=== PATIENT | male | born 1930 | race Caucasian/White ===

== ENCOUNTER 2019-03-09 06:23 | Day surgery (SDC) | payer OTHER, MEDICARE ==
[~2019-03-09 06:23] MED LIST: Lactated Ringers 1,000 ML IV SCH; ceFAZolin 2 GM in Premix Bag 1 BAG IV ONE
--- NOTE | 2019-03-09 07:07 | PCM.PREANE ---
Preanesthetic Assessment - Anesthesia/Transfusion/Family Hx Anesthesia History: Prior Anesthesia Without Reaction Family History of Anesthesia Reaction: No Transfusion History: Prior Transfusion Without Reaction Intubation History: Unknown - Review of Systems General: No Symptoms Pulmonary: No Symptoms Cardiovascular: No Symptoms Gastrointestinal: No Symptoms Neurological: No Symptoms Other: Reports: None - Physical Assessment Vital Signs: Last Vital Signs Temp 36.5 C 03/09/19 06:45 Pulse 72 03/09/19 06:45 Resp 15 03/09/19 06:45 BP 152/89 H 03/09/19 06:45 Pulse Ox 96 03/09/19 06:45 Height: 6 ft 1 in Weight: 98.43 kg ASA Class: 2 Mental Status: Alert & Oriented x3 Airway Class: Mallampati = 2 Dentition: Reports: Normal Dentition Thyro-Mental Finger Breadths: 3 Mouth Opening Finger Breadths: 2 ROM/Head Extension: Limited/Partial Lungs: Clear to Auscultation, Normal Respiratory Effort Cardiovascular: Regular Rate, Regular Rhythm - Allergies Allergies/Adverse Reactions: Allergies Allergy/AdvReac Type Severity Reaction Status Date / Time No Known Allergies Allergy Verified 03/04/19 10:38 - Blood Blood Available: No - Anesthesia Plan Pre-Op Medication Ordered: None - Acknowledgements Anesthesia Type Planned: General Anesthesia Pt an Appropriate Candidate for the Planned Anesthesia: Yes Alternatives and Risks of Anesthesia Discussed w Pt/Guardian: Yes Pt/Guardian Understands and Agrees with Anesthesia Plan: Yes PreAnesthesia Questionnaire HEENT History: Reports: Other (See Below) Other HEENT History: wears glasses Cardiovascular History: Reports: Hypertension Respiratory History: Reports: None Gastrointestinal History: Reports: None Genitourinary History: Reports: None Musculoskeletal History: Reports: None Neurological History: Reports: None Psychiatric History: Reports: None Endocrine/Metabolic History: Reports: Hyperthyroidism Hematologic History: Reports: Blood Transfusion(s) Immunologic History: Reports: None Oncologic (Cancer) History: Reports: None Dermatologic History: Reports: None - Past Surgical History Head Surgeries/Procedures: Reports: None HEENT Surgical History: Reports: None Cardiovascular Surgical History: Reports: None Respiratory Surgical History: Reports: None GI Surgical History: Reports: None Male Surgical History: Reports: None Endocrine Surgical History: Reports: None Neurological Surgical History: Reports: None Musculoskeletal Surgical History: Reports: None Oncologic Surgical History: Reports: None Dermatological Surgical History: Reports: None - SUBSTANCE USE Smoking Status *Q: Former Smoker (quit in the '60s) Recreational Drug Use History: No - HOME MEDS Home Medications: Home Meds Ergocalciferol (Vitamin D2) [Vitamin D2] 1.25 mg PO DAILY 03/04/19 [History] Levothyroxine 150 mcg PO DAILY 03/04/19 [History] amLODIPine Besylate [Amlodipine Besylate] 10 mg PO DAILY 03/04/19 [History] - CURRENT (IN HOUSE) MEDS Current Meds: Current Medications Lactated Ringer's (Ringers, Lactated) 1,000 mls @ 125 mls/hr IV ASDIRECTED PEPITO Discontinued Medications Cefazolin Sodium/Dextrose 2 gm (/ Premix) 50 mls @ 100 mls/hr IV ONETIME ONE Stop: 03/08/19 16:45 Cefazolin Sodium/Dextrose 2 gm (/ Premix) 50 mls @ 100 mls/hr IV ONETIME ONE Stop: 03/09/19 05:29
[2019-03-09] MEDS ORDERED: Midazolam 1 MG/ML 2 ML SDV ONE (07:16)
[2019-03-09] MEDS ORDERED: fentaNYL 100 MCG/2 ML SDV ONE (07:16)
[2019-03-09] MEDS ORDERED: Bupivacaine 25%/EPINEPHrine/PF 30 ML ONE (07:18)
[2019-03-09] MEDS ORDERED: Propofol 200 MG/20 ML SDV ONE ×2 (07:20→08:53)
[2019-03-09] MEDS ORDERED: Rocuronium 100 MG/10 ML Syringe ONE (07:21)
[2019-03-09] MEDS ORDERED: ePHEDrine 50 MG/ML SDV ONE (07:23)
[2019-03-09] MEDS ORDERED: Glycopyrrolate 0.2 MG/ML SDV ONE (07:23)
[2019-03-09] MEDS ORDERED: Octyl 2-Cyanoacrylate 1 Tube ONE (08:56)
[2019-03-09] MEDS ORDERED: Acetaminophen/oxyCODONE 325-5 MG Tab PO PRN (09:12)
--- NOTE | 2019-03-09 09:12 | PCM.OPNOTE ---
- General Post-Op/Procedure Note Date of Surgery/Procedure: 03/09/19 Operative Procedure(s): incarcerated umb hernia repair, primary Findings: hernia was 6 cm, but neck was 2cm, repair primary, no mesh used; [id number] Pre Op Diagnosis: incarcerated umb hernia Post-Op Diagnosis: Same Anesthesia Technique: General ET Tube Primary Surgeon: Krunal Carvajal Pathology: sent Complications: None Condition: Good
--- NOTE | 2019-03-09 09:26 | PCM.POSTAN ---
POST ANESTHESIA ASSESSMENT - MENTAL STATUS Mental Status: Alert, Oriented - VITAL SIGNS Vital Signs: Last Vital Signs Temp 37.1 C 03/09/19 09:07 Pulse 80 03/09/19 09:22 Resp 19 03/09/19 09:22 BP 142/73 H 03/09/19 09:22 Pulse Ox 96 03/09/19 09:22 - RESPIRATORY Respiratory Status: Respiratory Rate WNL, Airway Patent, O2 Saturation Stable - CARDIOVASCULAR CV Status: Pulse Rate WNL, Blood Pressure Stable - GASTROINTESTINAL GI Status: No Symptoms - PAIN Pain Score: 0 - POST OP HYDRATION Hydration Status: Adequate & Stable - OBSERVATIONS Free Text/Narrative:: No anesthesia problems
[2019-03-09 10:11] VITALS: BP 137/73
--- NOTE | 2019-03-09 10:51 | PCM48HPAN ---
Post Anesthesia Note - EVALUATION WITHIN 48HRS OF ANESTHETIC Vital Signs in Normal Range: Yes Patient Participated in Evaluation: Yes Respiratory Function Stable: Yes Airway Patent: Yes Cardiovascular Function Stable: Yes Hydration Status Stable: Yes Pain Control Satisfactory: Yes Nausea and Vomiting Control Satisfactory: Yes Mental Status Recovered: Yes Vital Signs: Last Vital Signs Temp 37.5 C 03/09/19 09:25 Pulse 79 03/09/19 10:00 Resp 15 03/09/19 10:00 BP 137/73 03/09/19 10:00 Pulse Ox 90 L 03/09/19 10:00 - COMMENTS/OBSERVATIONS Free Text/Narrative:: No anesthesia problems
--- NOTE | 2019-03-09 11:01 | OR ---
SURGEON: Krunal Carvajal MD DATE OF PROCEDURE: 03/09/2019 PREOPERATIVE DIAGNOSIS: Incarcerated umbilical hernia. POSTOPERATIVE DIAGNOSIS: Incarcerated umbilical hernia. PROCEDURE PERFORMED: Repair, primary, without using mesh. PRIMARY SURGEON: Krunal Carvajal MD. COMPLICATIONS: None. FINDINGS: The hernia has been there for more than 10 years growing together with the skin and the hernia sac, required some time to take it down. The hernia itself is about 5 cm or 6 cm, but the neck measures only 2 cm. There is some erythema on the skin at the bottom of the umbilicus. Concern about maybe some superficial infection, decided not to use any mesh. The hernia was repaired primary. PROCEDURE: The patient was brought to the operating room and placed in the supine position and upon the induction of general endotracheal anesthesia, the patient's abdomen was prepped and draped in sterile fashion. After assessment of appropriate landmarks, a surgical incision was made periumbilically which was then carefully dissected with blunt and sharp dissection surrounding the umbilical stalk. Hernia was entered and the fascial defect was noted, and the excess hernia sac was amputated. The facial edge was noted to be intact and the fascia was then grasped up with Allis clamps and then using 2-0 Ethibond, simple stitches were placed. After repair was finished and exploring the neighborhood, I failed to find any more hernia defect. This was followed with extensive irrigation and good hemostasis was achieved by using electrocautery. The umbilicus was then stitched down to recreate the umbilicus, and the skin was closed with 3-0 Vicryl subcutaneously followed with Dermabond approximating the skin. The patient was then awakened and extubated and transferred to the recovery room in good stable condition. Dr. Carvajal was present through the whole procedure. At the conclusion of the surgery, before closing the abdominal wound, instrument count and sponge count were done and were correct. Just before surgery, a timeout was called. The patient was identified and procedure identified and procedure started. In this patient, no mesh was used and the fascial defect was 2 x 2 cm. Intraoperative findings, as dictated above. As always, thank you for the kind referral. RENNY / MARKIE /[id number]
[2019-03-09 12:54] VITALS: PULSE 78
== END 2019-03-09 10:55 | disposition home or self-care (01) ==
LOC: MW.SDS 06:23
PROVIDERS: ATTEND Surgery
DX: K42.0 Umbilical hernia with obstruction, without gangrene (principal); I10 Essential (primary) hypertension; E78.00 Pure hypercholesterolemia, unspecified; Z87.891 Personal history of nicotine dependence; Z79.899 Other long term (current) drug therapy
CPT/HCPCS: 49587; 88302; A9270; J0330; J2001; J2250; J2704; J3010; J3490; J7120

== ENCOUNTER 2019-09-13 18:28 | Inpatient (IN) | payer MEDICARE, OTHER ==
--- NOTE | 2019-09-13 18:46 | EDM.PDOC ---
ED HPI GENERAL MEDICAL PROBLEM - General Chief Complaint: Lower Extremity Injury/Pain Stated Complaint: ANKLE INJURY Time Seen by Provider: 09/13/19 18:45 Source of Information: Reports: Patient History Limitations: Reports: No Limitations - History of Present Illness INITIAL COMMENTS - FREE TEXT/NARRATIVE: HISTORY AND PHYSICAL: History of present illness: Patient is an 89-year-old male with history presents to the ED with complaint of left ankle injury. Patient states that he fell earlier after tripping injuring his left ankle. He states he has not been able to bear any weight on it. He denies loss of consciousness, head or other injury. He is not on any anticoagulants. Past medical history of hypertension and hypothyroidism. Review of systems: As per history of present illness and below otherwise all systems reviewed and negative. Past medical history: As per history of present illness and as reviewed below otherwise noncontributory. Surgical history: As per history of present illness and as reviewed below otherwise noncontributory. Social history: No reported history of drug or alcohol abuse. Family history: As per history of present illness and as reviewed below otherwise noncontributory. Physical exam: General: Patient sitting comfortably in no acute distress and nontoxic appearing HEENT: Atraumatic, normocephalic, pupils reactive, negative for conjunctival pallor or scleral icterus, mucous membranes moist, throat clear, neck supple, nontender, trachea midline. No meningeal signs. Lungs: Clear to auscultation, breath sounds equal bilaterally, chest nontender. Heart: S1S2, regular, negative for clicks, rubs, or overt murmur. Abdomen: Soft, nondistended, nontender. Negative for masses or hepatosplenomegaly. Negative for costovertebral tenderness. No rigidity, rebound , guarding. Pelvis: Stable nontender. Genitourinary: Deferred. Rectal: Deferred. Extremities: Left ankle is deformed. There is skin tenting to the medial ankle. Dorsalis pedis pulses 2+. CMS intact distally. There is a skin tear to the posterior left elbow without any tenderness to palpation and full ROM. negative for cords or calf pain. Neurovascular unremarkable Neuro: Awake, alert, oriented. Cranial nerves II through XII unremarkable. Cerebellum unremarkable. Motor and sensory unremarkable throughout. Exam nonfocal. Notes: Attempted to reduce ankle by Dr. Noriega and myself without success. Dr. Blair, orthopedics, consulted. 2030 - Dr. Blair to the ED and reduced the ankle. Diagnostics: x-ray left ankle pre and post reduction Therapeutics: 1mg Dilaudid Impression: Left ankle fracture and dislocation Plan: Patient will be admitted to medicine for intermediate evaluation and Dr. Blair to consult on patient. Definitive disposition and diagnosis as appropriate pending reevaluation and review of above. L ankle Pain Score (Numeric/FACES): 5 - Related Data Allergies Allergy/AdvReac Type Severity Reaction Status Date / Time No Known Allergies Allergy Verified 09/13/19 18:51 Home Meds: Home Meds Ergocalciferol (Vitamin D2) [Vitamin D2] 1.25 mg PO DAILY 03/04/19 [History] Levothyroxine 150 mcg PO DAILY 03/04/19 [History] amLODIPine Besylate [Amlodipine Besylate] 10 mg PO DAILY 03/04/19 [History] Past Medical History HEENT History: Reports: Other (See Below) Other HEENT History: wears glasses Cardiovascular History: Reports: Hypertension Respiratory History: Reports: None Gastrointestinal History: Reports: None Genitourinary History: Reports: None Musculoskeletal History: Reports: None Neurological History: Reports: None Psychiatric History: Reports: None Endocrine/Metabolic History: Reports: Hyperthyroidism Hematologic History: Reports: Blood Transfusion(s) Immunologic History: Reports: None Oncologic (Cancer) History: Reports: None Dermatologic History: Reports: None - Past Surgical History Head Surgeries/Procedures: Reports: None HEENT Surgical History: Reports: None Cardiovascular Surgical History: Reports: None Respiratory Surgical History: Reports: None GI Surgical History: Reports: None Male Surgical History: Reports: None Endocrine Surgical History: Reports: None Neurological Surgical History: Reports: None Musculoskeletal Surgical History: Reports: None Oncologic Surgical History: Reports: None Dermatological Surgical History: Reports: None Social & Family History - Family History Family Medical History: Noncontributory Review of Systems - Review of Systems Review Of Systems: Comprehensive ROS is negative, except as noted in HPI. ED EXAM, GENERAL - Physical Exam Exam: See Below (see dictation) Course - Vital Signs Last Recorded V/S: Last Vital Signs Temp 97.2 F 09/13/19 18:40 Pulse 77 09/13/19 19:30 Resp 17 09/13/19 19:30 BP 132/72 09/13/19 19:30 Pulse Ox 98 09/13/19 19:30 - Orders/Labs/Meds Orders: Active Orders 24 hr Category Date Time Status Admission Status [Patient Status] [ADT] Stat ADT 09/13/19 21:05 Ordered Ankle Min 3V Lt [CR] Stat Exams 09/13/19 20:44 Taken Meds: Medications Discontinued Medications Generic Name Dose Route Start Last Admin Trade Name Howie PRN Reason Stop Dose Admin Bacitracin Confirm 09/13/19 19:34 Bacitracin Oint 1 Gm Administered 09/13/19 19:35 Dose 1 dose .ROUTE .STK-MED ONE Bacitracin 1 dose 09/13/19 19:46 09/13/19 20:52 Bacitracin Oint 1 Gm TOP 09/13/19 19:47 1 dose ONETIME ONE Administration Hydromorphone HCl 2 mg 09/13/19 19:27 09/13/19 19:40 Dilaudid IVPUSH 09/13/19 19:28 1 mg ONETIME ONE Administration Lorazepam 0.5 mg 09/13/19 19:27 Ativan IVPUSH 09/13/19 19:28 ONETIME ONE Departure - Departure Time of Disposition: 21:14 Disposition: Admitted As Inpatient 67 Condition: Good Clinical Impression: Ankle fracture, left - Discharge Information Referrals: [facility] [Primary Care Provider] - Forms: ED Department Discharge Sepsis Event Note - Focused Exam Vital Signs: Vital Signs Temp Pulse Resp BP Pulse Ox 09/13/19 19:30 77 17 132/72 98 09/13/19 19:15 77 17 127/72 98 09/13/19 19:00 81 18 128/71 98 09/13/19 18:40 97.2 F 81 19 112/73 99 Date Exam was Performed: 09/13/19 Time Exam was Performed: 21:10 - My Orders Last 24 Hours: My Active Orders 09/13/19 20:44 Ankle Min 3V Lt [CR] Stat 09/13/19 21:05 Admission Status [Patient Status] [ADT] Stat - Assessment/Plan Last 24 Hours: My Active Orders 09/13/19 20:44 Ankle Min 3V Lt [CR] Stat 09/13/19 21:05 Admission Status [Patient Status] [ADT] Stat
--- NOTE | 2019-09-13 19:06 | CR ---
Left ankle: 3 views left ankle were obtained. Comparison: No prior ankle study. Displaced distal fibular fracture is seen. Shifting of the tibia in a medial direction in relation to the talus is seen compatible with partial dislocation. Posterior malleolus fracture is noted. No additional bony abnormality is appreciated. Diffuse soft tissue swelling is present. Impression: 1. Displaced distal fibular fracture with unstable ankle mortise causing shifting of the tibia in relation to the talus. 2. Small posterior malleolus fracture. 3. Soft tissue swelling. Diagnostic code #3 This report was dictated in MDT
[2019-09-13] MEDS ORDERED: HYDROmorphone 1 MG/ML Syringe IVPUSH ONE (19:27)
[2019-09-13] MEDS ORDERED: LORazepam 2 MG/ML SDV IVPUSH ONE (19:27)
[2019-09-13] MEDS ORDERED: Bacitracin Oint 1 GM U/D Packet ONE (19:34)
[2019-09-13] MEDS ORDERED: Bacitracin Oint 1 GM U/D Packet TOP ONE (19:46)
--- NOTE | 2019-09-13 20:09 | CR ---
Left ankle: 3 views left ankle were obtained. Comparison: Prior left ankle study performed earlier on the same day (6:49 PM). Findings: Displaced fibular fracture is noted with continuing subluxation of the tibia. Slightly displaced fracture within the posterior malleolus is again noted. Fiberglas cast or splint is noted. Impression: 1. Continuing subluxation of the tibia and continuing displaced distal fibular fracture. Diagnostic code #3 This report was dictated in MDT
--- NOTE | 2019-09-13 21:19 | CR ---
Left ankle: 3 views of the left ankle were obtained. Comparison: Prior left ankle exam was performed earlier on the same day (7:53 PM and 6:49 PM). Mild subluxation at the tibiotalar joint. These findings are improved from previous study. Fracture within the distal fibula remains displaced. Posterior malleolus fracture not well seen on this exam. Plaster splint or cast is in place. Impression: 1. Slight subluxation remains at the tibiotalar joint which is improved from prior study. 2. Displaced fibular fracture remains. Diagnostic code #3 This report was dictated in MDT
--- NOTE | 2019-09-13 21:27 | CR ---
Left ankle: Single AP view of the left ankle was obtained. Comparison: Study compared to most recent exam performed on the same day (8:50 PM). Mild subluxation at the tibiotalar joint is noted which continues to improve from most recent exam. Slightly displaced fibular fracture is again noted which is also mildly improved. Plaster splint or cast is in place. Impression: 1. Slight subluxation of the tibiotalar joint remains but findings continue to improve when compared to previous exam. Diagnostic code #2 This report was dictated in MDT
--- NOTE | 2019-09-13 21:32 | PCM.CONS ---
H&P History of Present Illness - General Date of Service: 09/13/19 Admit Problem/Dx: Admission Diagnosis/Problem Admission Diagnosis/Problem Ankle fracture Source of Information: Patient, Provider History Limitations: Reports: No Limitations - History of Present Illness Initial Comments - Free Text/Narative: Patient fell at home. Patient does not remember fall mechanism. Brought to hospital by EMS. Left ankle fracture dislocation by x-ray. Unable to be reduced by ER provider. No foot numbness. Skin tear/laceration left elbow. Onset of Symptoms: Reports: Sudden L ankle Pain Score (Numeric/FACES): 5 - Related Data Allergies/Adverse Reactions: Allergies Allergy/AdvReac Type Severity Reaction Status Date / Time No Known Allergies Allergy Verified 09/13/19 18:51 Home Medications: Home Meds Ergocalciferol (Vitamin D2) [Vitamin D2] 1.25 mg PO DAILY 03/04/19 [History] Levothyroxine 150 mcg PO DAILY 03/04/19 [History] amLODIPine Besylate [Amlodipine Besylate] 10 mg PO DAILY 03/04/19 [History] Past Medical History HEENT History: Reports: Other (See Below) Other HEENT History: wears glasses Cardiovascular History: Reports: Hypertension Respiratory History: Reports: None Gastrointestinal History: Reports: None Genitourinary History: Reports: None Musculoskeletal History: Reports: None Neurological History: Reports: None Psychiatric History: Reports: None Endocrine/Metabolic History: Reports: Hyperthyroidism Hematologic History: Reports: Blood Transfusion(s) Immunologic History: Reports: None Oncologic (Cancer) History: Reports: None Dermatologic History: Reports: None - Past Surgical History Head Surgeries/Procedures: Reports: None HEENT Surgical History: Reports: None Cardiovascular Surgical History: Reports: None Respiratory Surgical History: Reports: None GI Surgical History: Reports: None Male Surgical History: Reports: None Endocrine Surgical History: Reports: None Neurological Surgical History: Reports: None Musculoskeletal Surgical History: Reports: None Oncologic Surgical History: Reports: None Dermatological Surgical History: Reports: None Social & Family History - Family History Family Medical History: Noncontributory - Tobacco Use Smoking Status *Q: Never Smoker - Caffeine Use Caffeine Use: Reports: Coffee - Recreational Drug Use Recreational Drug Use: No H&P Review of Systems - Review of Systems: Review Of Systems: See Below Musculoskeletal: Reports: No Symptoms, Joint Pain Exam - Exam Exam: See Below - Vital Signs Vital Signs: Last Vital Signs Temp 97.2 F 09/13/19 18:40 Pulse 82 09/13/19 20:30 Resp 18 09/13/19 20:30 BP 139/88 09/13/19 20:30 Pulse Ox 99 09/13/19 20:30 Weight: 200 lb - Exam General: Alert, Oriented Peripheral Pulses: 0: Dorsalis Pedis (L) Skin: Other (Medial ankle abrasion/skin tenting but no open injury.) Neurological: Sensation Intact Physical Exam Comments:: Ankle ROM, stability, strength, and palpation deferred due to known fracture Sepsis Event Note - Evaluation Sepsis Screening Result: No Definite Risk - Focused Exam Vital Signs: Vital Signs Temp Pulse Resp BP Pulse Ox 09/13/19 20:30 82 18 139/88 99 09/13/19 20:25 82 18 140/71 98 09/13/19 20:20 83 17 151/79 H 99 09/13/19 20:15 82 17 139/80 99 09/13/19 20:00 77 17 127/69 99 09/13/19 19:30 77 17 132/72 98 09/13/19 19:15 77 17 127/72 98 09/13/19 19:00 81 18 128/71 98 09/13/19 18:40 97.2 F 81 19 112/73 99 Date Exam was Performed: 09/13/19 Time Exam was Performed: 21:26 Consult PN Assessment/Plan Procedures: Procedures COMPLETE CBC W/AUTO DIFF WBC (01/26/19) COMPREHEN METABOLIC PANEL (01/26/19) CT ABD & PELVIS W/O CONTRAST (01/26/19) CT ABDOMEN W/O & W/DYE (01/11/15) CT HEAD/BRAIN W/O DYE (06/21/14) ELECTROCARDIOGRAM TRACING (01/20/19) EMERGENCY DEPT VISIT (06/21/14) ROUTINE VENIPUNCTURE (01/26/19) RPR S/N/AX/GEN/TRNK2.6-7.5CM (06/21/14) RPR UMBIL KEY BLOCK > 5 YR (03/09/19) TISSUE EXAM BY PATHOLOGIST (03/09/19) (1) Ankle fracture, left SNOMED Code(s): 21687942 Code(s): S82.892A - OTH FRACTURE OF LEFT LOWER LEG, INIT FOR CLOS FX Priority: High Current Visit: Yes Qualifiers: Encounter type: initial encounter Fracture type: closed Qualified Code(s) : S82.892A - Other fracture of left lower leg, initial encounter for closed fracture Assessment:: Left lateral malleolus ankle fracture with lateral ankle dislocation Problem List Initiated/Reviewed/Updated: Yes Plan: Closed reduction in ER x 2 Closed reduction manipulation of left ankle with x-rays confirming adequate reduction after secnd reduction. Patient tolerated the procedure well. Plaster stirrup splint applied. Admit to hospital for nursing facility placement Unable able to treat immediately due to concern for swelling and skin problems. Elevate left ankle Strictly non weight bearing left lower extremity for 6 weeks Recommend casting next week. If unable to get anatomic reduction, will need to convert to open reduction and internal fixation. Discussed with Dr. Almendarez Regular diet, no need to be NPO
[2019-09-14] MEDS ORDERED: oxyCODONE 5 MG Tab PO PRN (00:03)
--- NOTE | 2019-09-14 00:08 | PCM.HP.2 ---
H&P History of Present Illness - General Date of Service: 09/14/19 Admit Problem/Dx: Admission Diagnosis/Problem Admission Diagnosis/Problem Ankle fracture - History of Present Illness Initial Comments - Free Text/Narative: 89 yo male with pmh of hypertension and hypothyrodism who presented to the ED with ankle fracture. Patient reported falling after tripping on the sidewalk outside the [place] [employer] on his way home. He reports drinking about four beers at the [employer] daily with friends. The x-ray report dislocation with fracture. He had closed reduction x2 in the ED. Dr. Blair was consulted and recommended admission. L ankle Pain Score (Numeric/FACES): 5 - Related Data Allergies/Adverse Reactions: Allergies Allergy/AdvReac Type Severity Reaction Status Date / Time No Known Allergies Allergy Verified 09/13/19 22:40 Home Medications: Home Meds Ergocalciferol (Vitamin D2) [Vitamin D2] 2,000 unit PO DAILY 03/04/19 [History] Levothyroxine 75 mcg PO DAILY 03/04/19 [History] amLODIPine Besylate [Amlodipine Besylate] 5 mg PO DAILY 03/04/19 [History] Past Medical History HEENT History: Reports: Other (See Below) Other HEENT History: wears glasses Cardiovascular History: Reports: Hypertension Respiratory History: Reports: None Gastrointestinal History: Reports: None Genitourinary History: Reports: None Musculoskeletal History: Reports: None Neurological History: Reports: None Psychiatric History: Reports: None Endocrine/Metabolic History: Reports: Hyperthyroidism Hematologic History: Reports: Blood Transfusion(s) Immunologic History: Reports: None Oncologic (Cancer) History: Reports: None Dermatologic History: Reports: None - Past Surgical History Head Surgeries/Procedures: Reports: None HEENT Surgical History: Reports: None Cardiovascular Surgical History: Reports: None Respiratory Surgical History: Reports: None GI Surgical History: Reports: None Male Surgical History: Reports: None Endocrine Surgical History: Reports: None Neurological Surgical History: Reports: None Musculoskeletal Surgical History: Reports: None Oncologic Surgical History: Reports: None Dermatological Surgical History: Reports: None Social & Family History - Family History Family Medical History: Noncontributory - Tobacco Use Smoking Status *Q: Former Smoker Used Tobacco, but Quit: Yes Month/Year Tobacco Last Used: 1963 Second Hand Smoke Exposure: No - Caffeine Use Caffeine Use: Reports: Coffee - Alcohol Use Days Per Week of Alcohol Use: 4 Number of Drinks Per Day: 2 Total Drinks Per Week: 8 Date of Last Drink: 09/13/19 Time of Last Drink: 18:00 - Recreational Drug Use Recreational Drug Use: No H&P Review of Systems - Review of Systems: Review Of Systems: Comprehensive ROS is negative, except as noted in HPI. Exam - Exam Exam: See Below - Vital Signs Vital Signs: Last Vital Signs Temp 36.2 C 09/13/19 18:40 Pulse 80 09/13/19 22:00 Resp 17 09/13/19 22:00 BP 136/70 09/13/19 22:00 Pulse Ox 98 09/13/19 22:00 Weight: 96 kg - Exam General: Alert, Oriented HEENT: Mucosa Moist & [place] Neck: Supple Lungs: Clear to Auscultation, Normal Respiratory Effort Cardiovascular: Regular Rate, Regular Rhythm GI/Abdominal Exam: Soft, Non-Tender, No Distention Skin: Warm, Dry, Intact Neurological: Cranial Nerves Intact. No: Focal Deficit - Patient Data Result Diagrams: 09/14/19 00:25 09/14/19 00:25 Sepsis Event Note - Evaluation Sepsis Screening Result: No Definite Risk - Focused Exam Vital Signs: Vital Signs Temp Pulse Resp BP Pulse Ox 09/13/19 22:00 80 17 136/70 98 09/13/19 21:00 80 17 143/76 H 99 09/13/19 20:30 82 18 139/88 99 09/13/19 20:25 82 18 140/71 98 09/13/19 20:20 83 17 151/79 H 99 09/13/19 20:15 82 17 139/80 99 09/13/19 20:00 77 17 127/69 99 09/13/19 19:30 77 17 132/72 98 09/13/19 19:15 77 17 127/72 98 09/13/19 19:00 81 18 128/71 98 09/13/19 18:40 36.2 C 81 19 112/73 99 Date Exam was Performed: 09/14/19 Time Exam was Performed: 18:17 Problem List Initiated/Reviewed/Updated: Yes Orders Last 24hrs: Active Orders 24 hr Category Date Time Status Admission Status [Patient Status] [ADT] Stat ADT 09/13/19 21:05 Active Oxygen Therapy [RC] PRN Care 09/13/19 23:58 Ordered VTE/DVT Education [RC] PER UNIT ROUTINE Care 09/13/19 23:58 Ordered Vital Signs [RC] Q4H Care 09/13/19 23:58 Ordered Regular Diet [DIET] Diet 09/14/19 Breakfast Ordered BASIC METABOLIC PANEL,BMP [CHEM] AM Lab 09/14/19 05:11 Ordered CBC WITH AUTO DIFF [HEME] AM Lab 09/14/19 05:11 Ordered CBC WITH AUTO DIFF [HEME] Routine Lab 09/14/19 00:07 Ordered COMPREHENSIVE METABOLIC PN,CMP [CHEM] Routine Lab 09/14/19 00:07 Ordered TSH [CHEM] Routine Lab 09/14/19 00:07 Ordered Heparin Sodium Med 09/14/19 00:15 Ordered 5,000 units SUBCUT Q12H oxyCODONE Med 09/14/19 00:03 Ordered 5 mg PO Q4H PRN Resuscitation Status Routine Resus Stat 09/13/19 23:58 Ordered Medication Orders Heparin Sodium (Porcine) (Heparin Sodium) 5,000 units SUBCUT Q12H PEPITO Oxycodone HCl (Oxycodone) 5 mg PO Q4H PRN PRN Reason: Pain (moderate 4-6) Assessment/Plan Comment:: 89 yo male with left ankle fracture admitted for pain control and debility. We will keep leg elevated. Dr. Blair plans on casting once swelling has improved.
[2019-09-14] MEDS: Folic Acid 1 MG Tab PO SCH ×2 (00:50→09:07)
[2019-09-14] MEDS: Heparin Sodium 5,000 Units/ML Vial SUBCUT SCH ×3 (00:51→23:52)
[2019-09-14] MEDS: Thiamine 100 MG Tab PO SCH ×2 (00:51→09:09)
[2019-09-14 01:01] LABS: CARBON DIOXIDE,CO2 24.4 mmol/L (21.0-32.0); POTASSIUM,K 4.3 mmol/L (3.5-5.1)
--- NOTE | 2019-09-14 08:47 | PCM.PN ---
- General Info Date of Service: 09/14/19 Admission Dx/Problem (Free Text): Admission Diagnosis/Problem Admission Diagnosis/Problem Ankle fracture Subjective Update: Feeling well this morning, No chest pain or SOB. Reports pain is well control. ASking about going home. We discussed the need to be fully evaluated by PT before we determine it is safe to return home with fracture. Functional Status: Reports: Pain Controlled, Tolerating Diet, Urinating - Review of Systems HEENT: Reports: No Symptoms. Denies: Headaches, Sore Throat Pulmonary: Reports: No Symptoms. Denies: Shortness of Breath, Cough, Sputum Cardiovascular: Reports: No Symptoms. Denies: Chest Pain, Palpitations Gastrointestinal: Reports: No Symptoms. Denies: Abdominal Pain, Nausea, Vomiting Genitourinary: Reports: No Symptoms. Denies: Dysuria, Frequency Skin: Reports: No Symptoms Neurological: Reports: No Symptoms Psychiatric: Reports: No Symptoms - Patient Data Vitals - Most Recent: Last Vital Signs Temp 98.9 F 09/14/19 03:58 Pulse 72 09/14/19 03:58 Resp 20 09/14/19 03:58 BP 154/71 H 09/14/19 03:58 Pulse Ox 94 L 09/14/19 03:58 Weight - Most Recent: 96 kg I&O - Last 24 Hours: Intake & Output 09/13/19 09/14/19 09/14/19 22:59 06:59 14:59 Intake Total 200 Output Total 525 Balance -325 Lab Results Last 24 Hours: Laboratory Results - last 24 hr 09/14/19 09/14/19 Range/Units 00:25 00:25 WBC 9.39 (4.0-11.0) K/uL RBC 5.13 (4.50-5.90) M/uL Hgb 11.0 L (13.0-17.0) g/dL Hct 35.9 L (38.0-50.0) % MCV 70.0 L (80.0-98.0) fL MCH 21.4 L (27.0-32.0) pg MCHC 30.6 L (31.0-37.0) g/dL RDW Std Deviation 44.9 (28.0-62.0) fl RDW Coeff of [place] 19 H (11.0-15.0) % Plt Count 194 (150-400) K/uL MPV 9.50 (7.40-12.00) fL Neut % (Auto) 76.1 (48.0-80.0) % Lymph % (Auto) 14.2 L (16.0-40.0) % [place] % (Auto) 8.2 (0.0-15.0) % Eos % (Auto) 1.2 (0.0-7.0) % Baso % (Auto) 0.3 (0.0-1.5) % Neut # (Auto) 7.2 H (1.4-5.7) K/uL Lymph # (Auto) 1.3 (0.6-2.4) K/uL [place] # (Auto) 0.8 (0.0-0.8) K/uL Eos # (Auto) 0.1 (0.0-0.7) K/uL Baso # (Auto) 0.0 (0.0-0.1) K/uL Sodium 133 L (136-148) mmol/L Potassium 4.3 (3.5-5.1) mmol/L Chloride 99 (98-107) mmol/L Carbon Dioxide 24.4 (21.0-32.0) mmol/L BUN 18 (7.0-18.0) mg/dL Creatinine 1.3 (0.8-1.3) mg/dL Est Cr Clr Drug Dosing 44.39 mL/min Estimated GFR (MDRD) 52.1 ml/min Glucose 112 H (74-106) mg/dL Calcium 8.1 L (8.5-10.1) mg/dL Total Bilirubin 0.5 (0.2-1.0) mg/dL AST 30 (15-37) IU/L ALT 40 (14-63) IU/L Alkaline Phosphatase 121 H (46-116) U/L Total Protein 6.5 (6.4-8.2) g/dL Albumin 3.4 (3.4-5.0) g/dL Globulin 3.1 (2.6-4.0) g/dL Albumin/Globulin Ratio 1.1 (0.9-1.6) TSH 3rd Generation 3.72 (0.36-3.74) uIU/mL Med Orders - Current: Current Medications Amlodipine Besylate (Norvasc) 10 mg PO DAILY [facility] Folic Acid (Folic Acid) 1 mg PO DAILY ON LICENSE OF [facility] Last Admin: 09/14/19 00:50 Dose: 1 mg Heparin Sodium (Porcine) (Heparin Sodium) 5,000 units SUBCUT Q12H ON LICENSE OF [facility] Last Admin: 09/14/19 00:51 Dose: 5,000 units Levothyroxine Sodium (Levothyroxine) 150 mcg PO ACBREAKFAST ON LICENSE OF [facility] Oxycodone HCl (Oxycodone) 5 mg PO Q4H PRN PRN Reason: Pain (moderate 4-6) Thiamine HCl (Vitamin B-1) 100 mg PO DAILY ON LICENSE OF [facility] Last Admin: 09/14/19 00:51 Dose: 100 mg Discontinued Medications Bacitracin (Bacitracin Oint 1 Gm) Confirm Administered Dose 1 dose .ROUTE .STK- MED ONE Stop: 09/13/19 19:35 Last Admin: 09/13/19 21:15 Dose: Not Given Bacitracin (Bacitracin Oint 1 Gm) 1 dose TOP ONETIME ONE Stop: 09/13/19 19:47 Last Admin: 09/13/19 20:52 Dose: 1 dose Hydromorphone HCl (Dilaudid) 2 mg IVPUSH ONETIME ONE Stop: 09/13/19 19:28 Last Admin: 09/13/19 19:40 Dose: 1 mg Lorazepam (Ativan) 0.5 mg IVPUSH ONETIME ONE Stop: 09/13/19 19:28 Last Admin: 09/13/19 21:15 Dose: Not Given - Exam General: Alert, Oriented, Cooperative Lungs: Clear to Auscultation, Normal Respiratory Effort Cardiovascular: Regular Rate, Regular Rhythm GI/Abdominal Exam: Normal Bowel Sounds, Soft, Non-Tender Extremities: Normal Inspection, Normal Range of Motion, No Pedal Edema, Normal Capillary Refill Wound/Incisions: Dressing Dry and Intact (splint to L lower leg. ) Neurological: No New Focal Deficit Psy/Mental Status: Alert, Normal Affect, Normal Mood Sepsis Event Note - Evaluation Sepsis Screening Result: No Definite Risk - Focused Exam Vital Signs: Vital Signs Temp Pulse Resp BP Pulse Ox Pulse Ox 09/14/19 03:58 98.9 F 72 20 154/71 H 94 L 09/13/19 23:58 97 09/13/19 23:00 96.8 F L 74 20 121/47 L 98 09/13/19 22:00 80 17 136/70 98 09/13/19 21:00 80 17 143/76 H 99 Date Exam was Performed: 09/14/19 Time Exam was Performed: 10:07 - Problem List & Annotations (1) Ankle fracture, left SNOMED Code(s): 07396117 Code(s): S82.892A - OTH FRACTURE OF LEFT LOWER LEG, INIT FOR CLOS FX Status : Acute Priority: High Current Visit: Yes Qualifiers: Encounter type: initial encounter Fracture type: closed Qualified Code(s) : S82.892A - Other fracture of left lower leg, initial encounter for closed fracture (2) Hypothyroidism SNOMED Code(s): 22910863 Code(s): E03.9 - HYPOTHYROIDISM, UNSPECIFIED Status: Chronic Current Visit: Yes (3) HTN (hypertension) SNOMED Code(s): 66958054 Code(s): I10 - ESSENTIAL (PRIMARY) HYPERTENSION Status: Chronic Current Visit: Yes - Problem List Review Problem List Initiated/Reviewed/Updated: Yes - My Orders Last 24 Hours: My Active Orders 09/14/19 09:00 amLODIPine [Norvasc] 10 mg PO DAILY 09/14/19 11:00 Levothyroxine 150 mcg PO ACBREAKFAST - Plan Plan:: 89 yo male with left ankle fracture admitted for pain control and debility. 1. L ankle fracture: - PT consulted - Strict NWB to leg extremity - Dr Blair consulted, plans on casting once swelling has improved. - Oxycodone PRN pain - keep leg elevated. - CMS checks every 4 hours per nursing 2. HTN: - Stable, restart Amlodipine 3. Hypothyroidism - Stable, restart Levothyroxine. VTE Prophylaxis: Heparin subcut Dispo: 2-3 days pending improvement in ability to ambulate. May need to consider SNF for rehabilitation. I did discuss this with Julio. He is hoping to return home but lives alone, but knows he will need a lot of help
[2019-09-14] MEDS ORDERED: amLODIPine 5 MG Tab PO SCH (09:00)
[2019-09-14] MEDS ORDERED: Levothyroxine 150 MCG Tab PO SCH (11:00)
--- NOTE | 2019-09-14 15:06 | PCM.SN.2 ---
- Free Text/Narrative Note: Ortho Note Hospital day 1 Left ankle fracture dislocation with skin at risk Reduced and splinted in ER Admitted because unable to return to [place] where he lived independently He will need 3-5 days for swelling to subside for planned closed reduction and casting. He will need to be non-weight bearing for 6-8 weeks and will need correction facility I discussed this with the patient and he reports his daughter is already working on his disposition Jaxson Blair MD, PhD
[2019-09-15 06:32] LABS: BLOOD UREA NITROGEN,BUN 17 mg/dL (7.0-18.0); CARBON DIOXIDE,CO2 25.8 mmol/L (21.0-32.0); CHLORIDE,CL 104 mmol/L (98-107); GLUCOSE RANDOM 110 mg/dL (74-106); POTASSIUM,K 3.6 mmol/L (3.5-5.1); SODIUM,NA 139 mmol/L (136-148)
[2019-09-15] MEDS: Levothyroxine 150 MCG Tab PO SCH (06:33)
[2019-09-15] MEDS: Folic Acid 1 MG Tab PO SCH (09:00)
[2019-09-15] MEDS: amLODIPine 5 MG Tab PO SCH (09:00)
[2019-09-15] MEDS: Thiamine 100 MG Tab PO SCH (09:01)
[2019-09-15] MEDS ORDERED: Ergocalciferol (Vitamin D2) 2,000 UNIT PO SCH (10:00)
--- NOTE | 2019-09-15 10:17 | PCM.PN ---
- General Info Date of Service: 09/15/19 Admission Dx/Problem (Free Text): Admission Diagnosis/Problem Admission Diagnosis/Problem Ankle fracture Subjective Update: Doing well this morning, pain is well controlled. No chest pain or SOB. Functional Status: Reports: Pain Controlled, Tolerating Diet, Urinating - Review of Systems HEENT: Reports: No Symptoms. Denies: Headaches, Sore Throat, Visual Changes Pulmonary: Reports: No Symptoms. Denies: Shortness of Breath Cardiovascular: Reports: No Symptoms. Denies: Chest Pain Gastrointestinal: Reports: No Symptoms. Denies: Abdominal Pain, Nausea, Vomiting Genitourinary: Reports: No Symptoms Musculoskeletal: Reports: Joint Pain (L ankle, intermittent) Skin: Reports: No Symptoms Neurological: Reports: No Symptoms Psychiatric: Reports: No Symptoms - Patient Data Vitals - Most Recent: Last Vital Signs Temp 100 F 09/15/19 08:00 Pulse 74 09/15/19 08:00 Resp 18 09/15/19 08:00 BP 136/68 09/15/19 09:00 Pulse Ox 96 09/15/19 08:00 Weight - Most Recent: 96 kg I&O - Last 24 Hours: Intake & Output 09/14/19 09/15/19 09/15/19 22:59 06:59 14:59 Intake Total 360 500 Output Total 450 500 Balance -90 0 Lab Results Last 24 Hours: Laboratory Results - last 24 hr 09/15/19 09/15/19 Range/Units 05:54 05:54 WBC 4.78 (4.0-11.0) K/uL RBC 4.97 (4.50-5.90) M/uL Hgb 10.5 L (13.0-17.0) g/dL Hct 35.3 L (38.0-50.0) % MCV 71.0 L (80.0-98.0) fL MCH 21.1 L (27.0-32.0) pg MCHC 29.7 L (31.0-37.0) g/dL RDW Std Deviation 44.7 (28.0-62.0) fl RDW Coeff of [place] 18 H (11.0-15.0) % Plt Count 165 (150-400) K/uL MPV 9.80 (7.40-12.00) fL Neut % (Auto) 59.9 (48.0-80.0) % Lymph % (Auto) 24.1 (16.0-40.0) % [place] % (Auto) 11.9 (0.0-15.0) % Eos % (Auto) 3.1 (0.0-7.0) % Baso % (Auto) 1.0 (0.0-1.5) % Neut # (Auto) 2.9 (1.4-5.7) K/uL Lymph # (Auto) 1.2 (0.6-2.4) K/uL [place] # (Auto) 0.6 (0.0-0.8) K/uL Eos # (Auto) 0.2 (0.0-0.7) K/uL Baso # (Auto) 0.1 (0.0-0.1) K/uL Nucleated RBC % 0.0 /100WBC Nucleated RBCs # 0 K/uL Sodium 139 (136-148) mmol/L Potassium 3.6 (3.5-5.1) mmol/L Chloride 104 (98-107) mmol/L Carbon Dioxide 25.8 (21.0-32.0) mmol/L BUN 17 (7.0-18.0) mg/dL Creatinine 1.1 (0.8-1.3) mg/dL Est Cr Clr Drug Dosing 52.46 mL/min Estimated GFR (MDRD) > 60.0 ml/min Glucose 110 H (74-106) mg/dL Calcium 8.1 L (8.5-10.1) mg/dL Med Orders - Current: Current Medications Amlodipine Besylate (Norvasc) 5 mg PO DAILY [facility] Last Admin: 09/15/19 09:00 Dose: 5 mg Folic Acid (Folic Acid) 1 mg PO DAILY [facility] Last Admin: 09/15/19 09:00 Dose: 1 mg Heparin Sodium (Porcine) (Heparin Sodium) 5,000 units SUBCUT Q12H [facility] Last Admin: 09/14/19 23:52 Dose: 5,000 units Levothyroxine Sodium (Levothyroxine) 75 mcg PO ACBREAKFAST [facility] Last Admin: 09/15/19 06:33 Dose: 75 mcg Oxycodone HCl (Oxycodone) 5 mg PO Q4H PRN PRN Reason: Pain (moderate 4-6) Ergocalciferol ( Vitamin D2) 2,000 Unit 1 each PO DAILY [facility] Thiamine HCl (Vitamin B-1) 100 mg PO DAILY [facility] Last Admin: 09/15/19 09:01 Dose: 100 mg Discontinued Medications Amlodipine Besylate (Norvasc) 10 mg PO DAILY [facility] Last Admin: 09/14/19 09:06 Dose: 10 mg Bacitracin (Bacitracin Oint 1 Gm) Confirm Administered Dose 1 dose .ROUTE .STK- MED ONE Stop: 09/13/19 19:35 Last Admin: 09/13/19 21:15 Dose: Not Given Bacitracin (Bacitracin Oint 1 Gm) 1 dose TOP ONETIME ONE Stop: 09/13/19 19:47 Last Admin: 09/13/19 20:52 Dose: 1 dose Hydromorphone HCl (Dilaudid) 2 mg IVPUSH ONETIME ONE Stop: 09/13/19 19:28 Last Admin: 09/13/19 19:40 Dose: 1 mg Levothyroxine Sodium (Levothyroxine) 150 mcg PO ACBREAKFAST [facility] Last Admin: 09/14/19 11:09 Dose: 150 mcg Lorazepam (Ativan) 0.5 mg IVPUSH ONETIME ONE Stop: 09/13/19 19:28 Last Admin: 09/13/19 21:15 Dose: Not Given - Exam General: Alert, Oriented, Cooperative, No Acute Distress Lungs: Clear to Auscultation, Normal Respiratory Effort Cardiovascular: Regular Rate, Regular Rhythm GI/Abdominal Exam: Normal Bowel Sounds, Soft, Non-Tender Extremities: Normal Inspection, Normal Range of Motion, Non-Tender, Normal Capillary Refill Wound/Incisions: Dressing Dry and Intact (splint to L) Psy/Mental Status: Alert, Normal Affect, Normal Mood Sepsis Event Note - Evaluation Sepsis Screening Result: No Definite Risk - Focused Exam Vital Signs: Vital Signs Temp Pulse Resp BP BP Pulse Ox 09/15/19 09:00 136/68 09/15/19 08:00 100 F 74 18 136/68 96 09/15/19 03:50 99.3 F 75 19 151/70 H 97 09/14/19 23:51 99 F 76 18 141/67 H 97 Date Exam was Performed: 09/15/19 Time Exam was Performed: 10:17 - Problem List & Annotations (1) Ankle fracture, left SNOMED Code(s): 46752849 Code(s): S82.892A - OTH FRACTURE OF LEFT LOWER LEG, INIT FOR CLOS FX Status : Acute Priority: High Current Visit: Yes Qualifiers: Encounter type: initial encounter Fracture type: closed Qualified Code(s) : S82.892A - Other fracture of left lower leg, initial encounter for closed fracture (2) Hypothyroidism SNOMED Code(s): 57479213 Code(s): E03.9 - HYPOTHYROIDISM, UNSPECIFIED Status: Chronic Current Visit: Yes (3) HTN (hypertension) SNOMED Code(s): 82903265 Code(s): I10 - ESSENTIAL (PRIMARY) HYPERTENSION Status: Chronic Current Visit: Yes - Problem List Review Problem List Initiated/Reviewed/Updated: Yes - My Orders Last 24 Hours: My Active Orders 09/15/19 07:30 Levothyroxine 75 mcg PO ACBREAKFAST 09/15/19 09:00 amLODIPine [Norvasc] 5 mg PO DAILY 09/15/19 10:00 Patient's Own Medication [Ptom] 1 each PO DAILY - Plan Plan:: 89 yo male with left ankle fracture admitted for pain control and debility. 1. L ankle fracture: - PT consulted - Strict NWB to leg extremity - Up to chair for all meals. - Dr Blair consulted, plans on casting once swelling has improved. - Oxycodone PRN pain - keep leg elevated. - CMS checks every 4 hours per nursing 2. HTN: - Stable, restart Amlodipine 3. Hypothyroidism - Stable, restart Levothyroxine. VTE Prophylaxis: Heparin subcut Dispo: 2-3 days pending improvement in ability to ambulate. May need to consider SNF for rehabilitation. I did discuss this with Julio. He is hoping to return home but lives alone, but knows he will need a lot of help
[2019-09-15] MEDS ORDERED: Bisacodyl 10 MG Supp RECTAL PRN (11:52)
[2019-09-15] MEDS: Calcium Carbonate/Vitamin D3 1500 MG-400 Units Tab PO SCH (11:56)
[2019-09-15] MEDS: Heparin Sodium 5,000 Units/ML Vial SUBCUT SCH ×2 (11:56→23:35)
[2019-09-15] MEDS: Docusate Sodium 100 MG Cap PO SCH (12:08)
--- NOTE | 2019-09-15 12:22 | PCM.SN.2 ---
- Free Text/Narrative Note: Ortho Note Continue elevation on 2 pillows Waiting for swelling to subside Pain well controlled Plan Closed reduction and casting on Thursday.
[2019-09-16 06:21] LABS: CARBON DIOXIDE,CO2 26.4 mmol/L (21.0-32.0); POTASSIUM,K 3.5 mmol/L (3.5-5.1)
[2019-09-16] MEDS: Levothyroxine 150 MCG Tab PO SCH (06:40)
--- NOTE | 2019-09-16 07:49 | PCM.PN ---
<Citlalli Omalley - Last Filed: 09/16/19 10:13> - General Info Date of Service: 09/16/19 Subjective Update: Patient reports worsening pain today in the ankle, is going to try a pain pill. Denies chest pain, shortness of breath, or abdominal pain. Good appetite, having bowel movements. - Review of Systems General: Reports: No Symptoms HEENT: Reports: No Symptoms Pulmonary: Reports: No Symptoms Cardiovascular: Reports: No Symptoms Gastrointestinal: Reports: No Symptoms Genitourinary: Reports: No Symptoms Musculoskeletal: Reports: No Symptoms Skin: Reports: No Symptoms Neurological: Reports: No Symptoms Psychiatric: Reports: No Symptoms - Patient Data Vitals - Most Recent: Last Vital Signs Temp 97.3 F 09/16/19 04:33 Pulse 67 09/16/19 04:33 Resp 18 09/16/19 04:33 BP 139/63 09/16/19 04:33 Pulse Ox 94 L 09/16/19 04:33 Weight - Most Recent: 96 kg I&O - Last 24 Hours: Intake & Output 09/15/19 09/16/19 09/16/19 22:59 06:59 14:59 Intake Total 350 Output Total 300 Balance 50 Lab Results Last 24 Hours: Laboratory Results - last 24 hr 09/16/19 09/16/19 Range/Units 05:32 05:32 WBC 4.76 (4.0-11.0) K/uL RBC 4.92 (4.50-5.90) M/uL Hgb 10.6 L (13.0-17.0) g/dL Hct 35.2 L (38.0-50.0) % MCV 71.5 L (80.0-98.0) fL MCH 21.5 L (27.0-32.0) pg MCHC 30.1 L (31.0-37.0) g/dL RDW Std Deviation 46.3 (28.0-62.0) fl RDW Coeff of [place] 19 H (11.0-15.0) % Plt Count 161 (150-400) K/uL MPV 10.60 (7.40-12.00) fL Neut % (Auto) 63.1 (48.0-80.0) % Lymph % (Auto) 21.0 (16.0-40.0) % [place] % (Auto) 10.9 (0.0-15.0) % Eos % (Auto) 4.4 (0.0-7.0) % Baso % (Auto) 0.6 (0.0-1.5) % Neut # (Auto) 3.0 (1.4-5.7) K/uL Lymph # (Auto) 1.0 (0.6-2.4) K/uL [place] # (Auto) 0.5 (0.0-0.8) K/uL Eos # (Auto) 0.2 (0.0-0.7) K/uL Baso # (Auto) 0.0 (0.0-0.1) K/uL Sodium 142 (136-148) mmol/L Potassium 3.5 (3.5-5.1) mmol/L Chloride 107 (98-107) mmol/L Carbon Dioxide 26.4 (21.0-32.0) mmol/L BUN 19 H (7.0-18.0) mg/dL Creatinine 1.2 (0.8-1.3) mg/dL Est Cr Clr Drug Dosing 48.09 mL/min Estimated GFR (MDRD) 57.1 ml/min Glucose 107 H (74-106) mg/dL Calcium 8.1 L (8.5-10.1) mg/dL Med Orders - Current: Current Medications Amlodipine Besylate (Norvasc) 5 mg PO DAILY [facility] Last Admin: 09/15/19 09:00 Dose: 5 mg Bisacodyl (Dulcolax) 10 mg RECTAL DAILY PRN PRN Reason: Constipation Calcium Carbonate (Caltrate 600+D 1500 Mg-400 Units) 1 tab PO DAILY [facility] Last Admin: 09/15/19 11:56 Dose: 1 tab Docusate Sodium (Colace) 100 mg PO DAILY [facility] Last Admin: 09/15/19 12:08 Dose: Not Given Folic Acid (Folic Acid) 1 mg PO DAILY [facility] Last Admin: 09/15/19 09:00 Dose: 1 mg Heparin Sodium (Porcine) (Heparin Sodium) 5,000 units SUBCUT Q12H [facility] Last Admin: 09/15/19 23:35 Dose: 5,000 units Levothyroxine Sodium (Levothyroxine) 75 mcg PO ACBREAKFAST [facility] Last Admin: 05/29/20 06:40 Dose: 75 mcg Oxycodone HCl (Oxycodone) 5 mg PO Q4H PRN PRN Reason: Pain (moderate 4-6) Thiamine HCl (Vitamin B-1) 100 mg PO DAILY [facility] Last Admin: 09/15/19 09:01 Dose: 100 mg Discontinued Medications Amlodipine Besylate (Norvasc) 10 mg PO DAILY [facility] Last Admin: 09/14/19 09:06 Dose: 10 mg Bacitracin (Bacitracin Oint 1 Gm) Confirm Administered Dose 1 dose .ROUTE .STK- MED ONE Stop: 09/13/19 19:35 Last Admin: 09/13/19 21:15 Dose: Not Given Bacitracin (Bacitracin Oint 1 Gm) 1 dose TOP ONETIME ONE Stop: 09/13/19 19:47 Last Admin: 09/13/19 20:52 Dose: 1 dose Hydromorphone HCl (Dilaudid) 2 mg IVPUSH ONETIME ONE Stop: 09/13/19 19:28 Last Admin: 09/13/19 19:40 Dose: 1 mg Levothyroxine Sodium (Levothyroxine) 150 mcg PO ACBREAKFAST [facility] Last Admin: 09/14/19 11:09 Dose: 150 mcg Lorazepam (Ativan) 0.5 mg IVPUSH ONETIME ONE Stop: 09/13/19 19:28 Last Admin: 09/13/19 21:15 Dose: Not Given Ergocalciferol ( Vitamin D2) 2,000 Unit 1 each PO DAILY [facility] Last Admin: 09/15/19 11:47 Dose: Not Given - Exam General: Alert, Oriented, Cooperative Lungs: Clear to Auscultation, Normal Respiratory Effort Cardiovascular: Regular Rate, Regular Rhythm GI/Abdominal Exam: Normal Bowel Sounds, Soft, Non-Tender, No Distention Extremities: Normal Capillary Refill Skin: Warm, Dry Neurological: No New Focal Deficit Psy/Mental Status: Alert, Normal Affect, Normal Mood Sepsis Event Note - Evaluation Sepsis Screening Result: No Definite Risk - Focused Exam Vital Signs: Vital Signs Temp Pulse Resp BP Pulse Ox 09/16/19 04:33 97.3 F 67 18 139/63 94 L 09/15/19 23:24 97.8 F 76 18 135/76 97 Date Exam was Performed: 09/16/19 Time Exam was Performed: 10:13 - Problem List Review Problem List Initiated/Reviewed/Updated: Yes - Plan Plan:: 1. Left ankle Fracture- Ortho consulted- plans to cast once swelling has improved. Patient is strict non weight bearing and is working with PT. Nursing CMS checks every 4 hours. Oxycodone prn for pain. 2. HTN- stable, continue home med- amlodipine 3. Hypothyroidism- continue home med-levothyroxine <Rosalia Blackman - Last Filed: 09/17/19 10:39> - Patient Data Vitals - Most Recent: Last Vital Signs Temp 36.6 C 09/17/19 08:00 Pulse 64 09/17/19 08:00 Resp 18 09/17/19 08:00 BP 153/71 H 09/17/19 08:31 Pulse Ox 99 09/17/19 08:00 I&O - Last 24 Hours: Intake & Output 09/16/19 09/17/19 09/17/19 22:59 06:59 14:59 Intake Total 1610 1767 Output Total 300 500 Balance 1310 1267 Lab Results Last 24 Hours: Laboratory Results - last 24 hr 09/16/19 09/16/19 09/16/19 Range/Units 13:20 13:41 13:41 WBC (4.0-11.0) K/uL RBC (4.50-5.90) M/uL Hgb (13.0-17.0) g/dL Hct (38.0-50.0) % MCV (80.0-98.0) fL MCH (27.0-32.0) pg MCHC (31.0-37.0) g/dL RDW Std Deviation (28.0-62.0) fl RDW Coeff of [place] (11.0-15.0) % Plt Count (150-400) K/uL MPV (7.40-12.00) fL Neut % (Auto) (48.0-80.0) % Lymph % (Auto) (16.0-40.0) % [place] % (Auto) (0.0-15.0) % Eos % (Auto) (0.0-7.0) % Baso % (Auto) (0.0-1.5) % Neut # (Auto) (1.4-5.7) K/uL Lymph # (Auto) (0.6-2.4) K/uL [place] # (Auto) (0.0-0.8) K/uL Eos # (Auto) (0.0-0.7) K/uL Baso # (Auto) (0.0-0.1) K/uL Nucleated RBC % /100WBC Nucleated RBCs # K/uL Lactate 2.3 H* (0.20-2.00) mmol/L Sodium (136-148) mmol/L Potassium (3.5-5.1) mmol/L Chloride (98-107) mmol/L Carbon Dioxide (21.0-32.0) mmol/L BUN (7.0-18.0) mg/dL Creatinine (0.8-1.3) mg/dL Est Cr Clr Drug Dosing mL/min Estimated GFR (MDRD) ml/min Glucose (74-106) mg/dL POC Glucose 160 H (60-110) mg/dL Calcium (8.5-10.1) mg/dL Magnesium (1.8-2.4) mg/dL Total Bilirubin 0.8 (0.2-1.0) mg/dL Direct Bilirubin 0.20 (0.0-0.5) mg/dL Indirect Bilirubin 0.60 AST 26 (15-37) IU/L ALT 30 (14-63) IU/L Alkaline Phosphatase 136 H (46-116) U/L Creatine Kinase (26-308) U/L Total Protein 6.9 (6.4-8.2) g/dL Albumin 3.4 (3.4-5.0) g/dL Globulin 3.5 (2.6-4.0) g/dL Albumin/Globulin Ratio 1.0 (0.9-1.6) Prolactin 18.7 ng/mL 09/16/19 09/16/19 09/17/19 Range/Units 13:41 17:15 06:00 WBC 4.12 (4.0-11.0) K/uL RBC 4.68 (4.50-5.90) M/uL Hgb 9.9 L (13.0-17.0) g/dL Hct 34.1 L (38.0-50.0) % MCV 72.9 L (80.0-98.0) fL MCH 21.2 L (27.0-32.0) pg MCHC 29.0 L (31.0-37.0) g/dL RDW Std Deviation 46.7 (28.0-62.0) fl RDW Coeff of [place] 18 H (11.0-15.0) % Plt Count 144 L (150-400) K/uL MPV 9.80 (7.40-12.00) fL Neut % (Auto) 60.4 (48.0-80.0) % Lymph % (Auto) 25.0 (16.0-40.0) % [place] % (Auto) 9.0 (0.0-15.0) % Eos % (Auto) 4.4 (0.0-7.0) % Baso % (Auto) 1.2 (0.0-1.5) % Neut # (Auto) 2.5 (1.4-5.7) K/uL Lymph # (Auto) 1.0 (0.6-2.4) K/uL [place] # (Auto) 0.4 (0.0-0.8) K/uL Eos # (Auto) 0.2 (0.0-0.7) K/uL Baso # (Auto) 0.1 (0.0-0.1) K/uL Nucleated RBC % 0.0 /100WBC Nucleated RBCs # 0 K/uL Lactate 1.5 (0.20-2.00) mmol/L Sodium (136-148) mmol/L Potassium (3.5-5.1) mmol/L Chloride (98-107) mmol/L Carbon Dioxide (21.0-32.0) mmol/L BUN (7.0-18.0) mg/dL Creatinine (0.8-1.3) mg/dL Est Cr Clr Drug Dosing mL/min Estimated GFR (MDRD) ml/min Glucose (74-106) mg/dL POC Glucose (60-110) mg/dL Calcium (8.5-10.1) mg/dL Magnesium (1.8-2.4) mg/dL Total Bilirubin (0.2-1.0) mg/dL Direct Bilirubin (0.0-0.5) mg/dL Indirect Bilirubin AST (15-37) IU/L ALT (14-63) IU/L Alkaline Phosphatase (46-116) U/L Creatine Kinase 112 (26-308) U/L Total Protein (6.4-8.2) g/dL Albumin (3.4-5.0) g/dL Globulin (2.6-4.0) g/dL Albumin/Globulin Ratio (0.9-1.6) Prolactin ng/mL 09/17/19 09/17/19 Range/Units 06:00 06:00 WBC (4.0-11.0) K/uL RBC (4.50-5.90) M/uL Hgb (13.0-17.0) g/dL Hct (38.0-50.0) % MCV (80.0-98.0) fL MCH (27.0-32.0) pg MCHC (31.0-37.0) g/dL RDW Std Deviation (28.0-62.0) fl RDW Coeff of [place] (11.0-15.0) % Plt Count (150-400) K/uL MPV (7.40-12.00) fL Neut % (Auto) (48.0-80.0) % Lymph % (Auto) (16.0-40.0) % [place] % (Auto) (0.0-15.0) % Eos % (Auto) (0.0-7.0) % Baso % (Auto) (0.0-1.5) % Neut # (Auto) (1.4-5.7) K/uL Lymph # (Auto) (0.6-2.4) K/uL [place] # (Auto) (0.0-0.8) K/uL Eos # (Auto) (0.0-0.7) K/uL Baso # (Auto) (0.0-0.1) K/uL Nucleated RBC % /100WBC Nucleated RBCs # K/uL Lactate (0.20-2.00) mmol/L Sodium 141 (136-148) mmol/L Potassium 3.7 (3.5-5.1) mmol/L Chloride 108 H (98-107) mmol/L Carbon Dioxide 26.0 (21.0-32.0) mmol/L BUN 16 (7.0-18.0) mg/dL Creatinine 1.0 (0.8-1.3) mg/dL Est Cr Clr Drug Dosing 57.71 mL/min Estimated GFR (MDRD) > 60.0 ml/min Glucose 101 (74-106) mg/dL POC Glucose (60-110) mg/dL Calcium 7.5 L (8.5-10.1) mg/dL Magnesium 1.8 (1.8-2.4) mg/dL Total Bilirubin (0.2-1.0) mg/dL Direct Bilirubin (0.0-0.5) mg/dL Indirect Bilirubin AST (15-37) IU/L ALT (14-63) IU/L Alkaline Phosphatase (46-116) U/L Creatine Kinase (26-308) U/L Total Protein (6.4-8.2) g/dL Albumin (3.4-5.0) g/dL Globulin (2.6-4.0) g/dL Albumin/Globulin Ratio (0.9-1.6) Prolactin ng/mL Med Orders - Current: Current Medications Amlodipine Besylate (Norvasc) 5 mg PO DAILY [facility] Last Admin: 09/17/19 08:31 Dose: 5 mg Bisacodyl (Dulcolax) 10 mg RECTAL DAILY PRN PRN Reason: Constipation Calcium Carbonate (Caltrate 600+D 1500 Mg-400 Units) 1 tab PO DAILY [facility] Last Admin: 09/17/19 08:31 Dose: 1 tab Docusate Sodium (Colace) 100 mg PO DAILY [facility] Last Admin: 09/17/19 08:31 Dose: 100 mg Folic Acid (Folic Acid) 1 mg PO DAILY [facility] Last Admin: 09/17/19 08:31 Dose: 1 mg Heparin Sodium (Porcine) (Heparin Sodium) 5,000 units SUBCUT Q12H [facility] Last Admin: 09/16/19 23:48 Dose: 5,000 units Sodium Chloride (Normal Saline) 1,000 mls @ 125 mls/hr IV ASDIRECTED [facility] Last Admin: 09/17/19 08:30 Dose: 125 mls/hr Ketorolac Tromethamine (Toradol) 30 mg IVPUSH Q6H PRN PRN Reason: Pain Stop: 09/21/19 13:50 Levetiracetam (Keppra) 500 mg PO BID [facility] Last Admin: 09/17/19 08:31 Dose: 500 mg Levothyroxine Sodium (Levothyroxine) 75 mcg PO ACBREAKFAST [facility] Last Admin: 09/17/19 07:06 Dose: 75 mcg Lorazepam (Ativan) 0 mg IVPUSH Q4H PRN; Protocol PRN Reason: Withdrawal Symptoms Thiamine HCl (Vitamin B-1) 100 mg PO DAILY [facility] Last Admin: 09/17/19 08:31 Dose: 100 mg Discontinued Medications Amlodipine Besylate (Norvasc) 10 mg PO DAILY [facility] Last Admin: 09/14/19 09:06 Dose: 10 mg Bacitracin (Bacitracin Oint 1 Gm) Confirm Administered Dose 1 dose .ROUTE .STK- MED ONE Stop: 09/13/19 19:35 Last Admin: 09/13/19 21:15 Dose: Not Given Bacitracin (Bacitracin Oint 1 Gm) 1 dose TOP ONETIME ONE Stop: 09/13/19 19:47 Last Admin: 09/13/19 20:52 Dose: 1 dose Hydromorphone HCl (Dilaudid) 2 mg IVPUSH ONETIME ONE Stop: 09/13/19 19:28 Last Admin: 09/13/19 19:40 Dose: 1 mg Levetiracetam 1,000 mg/ (Dextrose/Water) 110 mls @ 440 mls/hr IV ONETIME ONE Stop: 09/16/19 13:58 Last Admin: 09/16/19 14:43 Dose: 440 mls/hr Sodium Chloride (Normal Saline) 1,000 mls @ 999 mls/hr IV STAT ONE Stop: 09/16/19 16:15 Last Admin: 09/16/19 15:25 Dose: 999 mls/hr Levothyroxine Sodium (Levothyroxine) 150 mcg PO ACBREAKFAST [facility] Last Admin: 09/14/19 11:09 Dose: 150 mcg Lorazepam (Ativan) 0.5 mg IVPUSH ONETIME ONE Stop: 09/13/19 19:28 Last Admin: 09/13/19 21:15 Dose: Not Given Lorazepam (Ativan) 1 mg IVPUSH ONETIME ONE Stop: 09/16/19 13:42 Last Admin: 09/16/19 13:54 Dose: 1 mg Oxycodone HCl (Oxycodone) 5 mg PO Q4H PRN PRN Reason: Pain (moderate 4-6) Last Admin: 09/16/19 09:38 Dose: 5 mg Ergocalciferol ( Vitamin D2) 2,000 Unit 1 each PO DAILY [facility] Last Admin: 09/15/19 11:47 Dose: Not Given Sepsis Event Note - Focused Exam Vital Signs: Vital Signs Temp Pulse Resp BP BP Pulse Ox 09/17/19 08:31 153/71 H 09/17/19 08:00 36.6 C 64 18 153/71 H 99 09/17/19 05:07 36.9 C 68 15 136/75 95 09/16/19 23:39 36.8 C 75 16 137/69 97 Date Exam was Performed: 09/17/19 Time Exam was Performed: 10:39 - Plan Plan:: I have seen and evaluated the patient and agree with the residents note unless specified in my note
[2019-09-16] MEDS: Folic Acid 1 MG Tab PO SCH (09:21)
[2019-09-16] MEDS: Docusate Sodium 100 MG Cap PO SCH (09:21)
[2019-09-16] MEDS: Calcium Carbonate/Vitamin D3 1500 MG-400 Units Tab PO SCH (09:21)
[2019-09-16] MEDS: Thiamine 100 MG Tab PO SCH (09:22)
[2019-09-16] MEDS: amLODIPine 5 MG Tab PO SCH (09:22)
--- NOTE | 2019-09-16 11:27 | PCM.SN.2 ---
- Free Text/Narrative Note: Ortho Note First complaint of pain today. Modified splint with medial benny wrap tension band to help keep ankle inverted Plan OR on September 18 for closed reduction and casting if swelling reduced and skin assessment clear Patient will be non weight bearing for 8 weeks after casting so he will need nursing facility placement Please call with questions over the weekend Consent completed NPO after midnight Thursday night for OR Thursday Discussed with Dr. Omalley
[2019-09-16] MEDS: Heparin Sodium 5,000 Units/ML Vial SUBCUT SCH ×2 (13:04→23:48)
[2019-09-16] MEDS ORDERED: LORazepam 2 MG/ML SDV IVPUSH PRN (13:26)
--- NOTE | 2019-09-16 13:37 | PCM.SN.2 ---
<Citlalli Omalley - Last Filed: 09/16/19 15:16> - Free Text/Narrative Note: I was contacted by the charge nurse at 1318 after rapid response was called on patient. Nursing had moved him from the bed to the chair. While in the chair, they reported his eyes rolled back in his head, his whole body stiffened and then his whole body started convulsing. He had two episodes like this. The first lasted 5s, he had 15s where he was altered and then had another 5s episode. On my exam, he was alert and oriented, no confusion, CN2-12 intact, no facial droop, no slurred speech, no extremity weakness, HR- RRR, lungs- CTA. Vitals stable and glucose of 160. He did not bite his tongue or lose bowel/ bladder. CT head, lactate, LFTs, CPK,prolactin ordered. Placed on telemetry, seizure precautions, and CIWA/Ativan protocol. Given 1mg of Ativan. Given loading dose of Keppra and then started on maintenance dosing. Started on IVF. No symptoms of withdrawal throughout his stay. This morning was the first time he received oxycodone, which could be the cause. Oxycodone will be stopped. No hx of seizure. Work up revealed no acute abnormalities on CT head. His lactate and prolactin were elevated consistent with seizure. Will give bolus and recheck lactate. LFTs, CPK wnl. <Rosalia Blackman - Last Filed: 09/17/19 10:40> - Free Text/Narrative Note: I have seen and evaluated the patient and agree with the residents note unless specified in my note
[2019-09-16] MEDS ORDERED: LORazepam 2 MG/ML SDV IVPUSH ONE (13:41)
[2019-09-16] MEDS ORDERED: Ketorolac 30 MG/ML SDV IVPUSH PRN (13:50)
[2019-09-16 14:20] LABS: BILIRUBIN INDIRECT 0.6
[2019-09-16] MEDS: Sodium Chloride 0.9% 1,000 ML IV SCH ×3 (14:42→23:45)
--- NOTE | 2019-09-16 14:44 | CT ---
Head CT Technique: Multiple axial sections through the brain were obtained. Intravenous contrast was not utilized. Comparison: Prior head CT study of 06/21/14. Findings: Ventricles along with basal cisterns and sulci over the convexities are moderately prominent. Minimal diminished density is noted within the periventricular white matter compatible with minimal small vessel ischemic demyelination change. No other abnormal parenchymal densities are seen. No evidence of intracranial hemorrhage. No midline shift or mass-effect is seen. Atherosclerotic calcifications seen within the carotid siphon and within the vertebral vessels. Visualized mastoid sinuses and visualized paranasal sinuses show nothing acute. No acute calvarial finding is seen. Impression: 1. Senescent change as noted above. 2. Nothing acute is definitely appreciated on noncontrast head CT exam. Diagnostic code #2 This report was dictated in MDT
[2019-09-16] MEDS ORDERED: Sodium Chloride 0.9% 1,000 ML IV ONE (15:15)
[2019-09-16] MEDS: levETIRAcetam 500 MG Tab PO SCH (20:48)
[2019-09-17 06:27] LABS: BLOOD UREA NITROGEN,BUN 16 mg/dL (7.0-18.0); CHLORIDE,CL 108 mmol/L (98-107); GLUCOSE RANDOM 101 mg/dL (74-106); POTASSIUM,K 3.7 mmol/L (3.5-5.1); SODIUM,NA 141 mmol/L (136-148)
[2019-09-17] MEDS: Levothyroxine 150 MCG Tab PO SCH (07:06)
--- NOTE | 2019-09-17 08:23 | PCM.PN ---
<Citlalli Omalley - Last Filed: 09/17/19 08:19> - General Info Date of Service: 09/17/19 Subjective Update: The patient reports he is doing well and has no complaints. The patient did have a seizure witnessed by nurses yesterday with elevated lactate and prolactin after. Lactate trended and now normal. Head CT negative. No hx of seizure. He did receive his first dose of oxycodone yesterday and then later had the seizure. No seizure activity the overnight. Reports good appetite. - Review of Systems General: Reports: No Symptoms HEENT: Reports: No Symptoms Pulmonary: Reports: No Symptoms Cardiovascular: Reports: No Symptoms Gastrointestinal: Reports: No Symptoms Genitourinary: Reports: No Symptoms Musculoskeletal: Reports: Foot Pain Skin: Reports: No Symptoms Neurological: Reports: No Symptoms Psychiatric: Reports: No Symptoms - Patient Data Vitals - Most Recent: Last Vital Signs Temp 98.5 F 09/17/19 05:07 Pulse 68 09/17/19 05:07 Resp 15 09/17/19 05:07 BP 136/75 09/17/19 05:07 Pulse Ox 95 09/17/19 05:07 Weight - Most Recent: 96 kg I&O - Last 24 Hours: Intake & Output 09/16/19 09/17/19 09/17/19 22:59 06:59 14:59 Intake Total 1610 1767 Output Total 300 500 Balance 1310 1267 Lab Results Last 24 Hours: Laboratory Results - last 24 hr 09/16/19 09/16/19 09/16/19 Range/Units 13:20 13:41 13:41 WBC (4.0-11.0) K/uL RBC (4.50-5.90) M/uL Hgb (13.0-17.0) g/dL Hct (38.0-50.0) % MCV (80.0-98.0) fL MCH (27.0-32.0) pg MCHC (31.0-37.0) g/dL RDW Std Deviation (28.0-62.0) fl RDW Coeff of Park (11.0-15.0) % Plt Count (150-400) K/uL MPV (7.40-12.00) fL Neut % (Auto) (48.0-80.0) % Lymph % (Auto) (16.0-40.0) % Foard % (Auto) (0.0-15.0) % Eos % (Auto) (0.0-7.0) % Baso % (Auto) (0.0-1.5) % Neut # (Auto) (1.4-5.7) K/uL Lymph # (Auto) (0.6-2.4) K/uL Foard # (Auto) (0.0-0.8) K/uL Eos # (Auto) (0.0-0.7) K/uL Baso # (Auto) (0.0-0.1) K/uL Nucleated RBC % /100WBC Nucleated RBCs # K/uL Lactate 2.3 H* (0.20-2.00) mmol/L Sodium (136-148) mmol/L Potassium (3.5-5.1) mmol/L Chloride (98-107) mmol/L Carbon Dioxide (21.0-32.0) mmol/L BUN (7.0-18.0) mg/dL Creatinine (0.8-1.3) mg/dL Est Cr Clr Drug Dosing mL/min Estimated GFR (MDRD) ml/min Glucose (74-106) mg/dL POC Glucose 160 H (60-110) mg/dL Calcium (8.5-10.1) mg/dL Magnesium (1.8-2.4) mg/dL Total Bilirubin 0.8 (0.2-1.0) mg/dL Direct Bilirubin 0.20 (0.0-0.5) mg/dL Indirect Bilirubin 0.60 AST 26 (15-37) IU/L ALT 30 (14-63) IU/L Alkaline Phosphatase 136 H (46-116) U/L Creatine Kinase (26-308) U/L Total Protein 6.9 (6.4-8.2) g/dL Albumin 3.4 (3.4-5.0) g/dL Globulin 3.5 (2.6-4.0) g/dL Albumin/Globulin Ratio 1.0 (0.9-1.6) Prolactin 18.7 ng/mL 09/16/19 09/16/19 09/17/19 Range/Units 13:41 17:15 06:00 WBC 4.12 (4.0-11.0) K/uL RBC 4.68 (4.50-5.90) M/uL Hgb 9.9 L (13.0-17.0) g/dL Hct 34.1 L (38.0-50.0) % MCV 72.9 L (80.0-98.0) fL MCH 21.2 L (27.0-32.0) pg MCHC 29.0 L (31.0-37.0) g/dL RDW Std Deviation 46.7 (28.0-62.0) fl RDW Coeff of Park 18 H (11.0-15.0) % Plt Count 144 L (150-400) K/uL MPV 9.80 (7.40-12.00) fL Neut % (Auto) 60.4 (48.0-80.0) % Lymph % (Auto) 25.0 (16.0-40.0) % Foard % (Auto) 9.0 (0.0-15.0) % Eos % (Auto) 4.4 (0.0-7.0) % Baso % (Auto) 1.2 (0.0-1.5) % Neut # (Auto) 2.5 (1.4-5.7) K/uL Lymph # (Auto) 1.0 (0.6-2.4) K/uL Foard # (Auto) 0.4 (0.0-0.8) K/uL Eos # (Auto) 0.2 (0.0-0.7) K/uL Baso # (Auto) 0.1 (0.0-0.1) K/uL Nucleated RBC % 0.0 /100WBC Nucleated RBCs # 0 K/uL Lactate 1.5 (0.20-2.00) mmol/L Sodium (136-148) mmol/L Potassium (3.5-5.1) mmol/L Chloride (98-107) mmol/L Carbon Dioxide (21.0-32.0) mmol/L BUN (7.0-18.0) mg/dL Creatinine (0.8-1.3) mg/dL Est Cr Clr Drug Dosing mL/min Estimated GFR (MDRD) ml/min Glucose (74-106) mg/dL POC Glucose (60-110) mg/dL Calcium (8.5-10.1) mg/dL Magnesium (1.8-2.4) mg/dL Total Bilirubin (0.2-1.0) mg/dL Direct Bilirubin (0.0-0.5) mg/dL Indirect Bilirubin AST (15-37) IU/L ALT (14-63) IU/L Alkaline Phosphatase (46-116) U/L Creatine Kinase 112 (26-308) U/L Total Protein (6.4-8.2) g/dL Albumin (3.4-5.0) g/dL Globulin (2.6-4.0) g/dL Albumin/Globulin Ratio (0.9-1.6) Prolactin ng/mL 09/17/19 09/17/19 Range/Units 06:00 06:00 WBC (4.0-11.0) K/uL RBC (4.50-5.90) M/uL Hgb (13.0-17.0) g/dL Hct (38.0-50.0) % MCV (80.0-98.0) fL MCH (27.0-32.0) pg MCHC (31.0-37.0) g/dL RDW Std Deviation (28.0-62.0) fl RDW Coeff of Park (11.0-15.0) % Plt Count (150-400) K/uL MPV (7.40-12.00) fL Neut % (Auto) (48.0-80.0) % Lymph % (Auto) (16.0-40.0) % Foard % (Auto) (0.0-15.0) % Eos % (Auto) (0.0-7.0) % Baso % (Auto) (0.0-1.5) % Neut # (Auto) (1.4-5.7) K/uL Lymph # (Auto) (0.6-2.4) K/uL Foard # (Auto) (0.0-0.8) K/uL Eos # (Auto) (0.0-0.7) K/uL Baso # (Auto) (0.0-0.1) K/uL Nucleated RBC % /100WBC Nucleated RBCs # K/uL Lactate (0.20-2.00) mmol/L Sodium 141 (136-148) mmol/L Potassium 3.7 (3.5-5.1) mmol/L Chloride 108 H (98-107) mmol/L Carbon Dioxide 26.0 (21.0-32.0) mmol/L BUN 16 (7.0-18.0) mg/dL Creatinine 1.0 (0.8-1.3) mg/dL Est Cr Clr Drug Dosing 57.71 mL/min Estimated GFR (MDRD) > 60.0 ml/min Glucose 101 (74-106) mg/dL POC Glucose (60-110) mg/dL Calcium 7.5 L (8.5-10.1) mg/dL Magnesium 1.8 (1.8-2.4) mg/dL Total Bilirubin (0.2-1.0) mg/dL Direct Bilirubin (0.0-0.5) mg/dL Indirect Bilirubin AST (15-37) IU/L ALT (14-63) IU/L Alkaline Phosphatase (46-116) U/L Creatine Kinase (26-308) U/L Total Protein (6.4-8.2) g/dL Albumin (3.4-5.0) g/dL Globulin (2.6-4.0) g/dL Albumin/Globulin Ratio (0.9-1.6) Prolactin ng/mL Med Orders - Current: Current Medications Amlodipine Besylate (Norvasc) 5 mg PO DAILY [facility] Last Admin: 09/16/19 09:22 Dose: 5 mg Bisacodyl (Dulcolax) 10 mg RECTAL DAILY PRN PRN Reason: Constipation Calcium Carbonate (Caltrate 600+D 1500 Mg-400 Units) 1 tab PO DAILY [facility] Last Admin: 09/16/19 09:21 Dose: 1 tab Docusate Sodium (Colace) 100 mg PO DAILY [facility] Last Admin: 09/16/19 09:21 Dose: 100 mg Folic Acid (Folic Acid) 1 mg PO DAILY [facility] Last Admin: 09/16/19 09:21 Dose: 1 mg Heparin Sodium (Porcine) (Heparin Sodium) 5,000 units SUBCUT Q12H [facility] Last Admin: 09/16/19 23:48 Dose: 5,000 units Sodium Chloride (Normal Saline) 1,000 mls @ 125 mls/hr IV ASDIRECTED [facility] Last Admin: 09/16/19 23:45 Dose: 125 mls/hr Ketorolac Tromethamine (Toradol) 30 mg IVPUSH Q6H PRN PRN Reason: Pain Stop: 09/21/19 13:50 Levetiracetam (Keppra) 500 mg PO BID [facility] Last Admin: 09/16/19 20:48 Dose: 500 mg Levothyroxine Sodium (Levothyroxine) 75 mcg PO ACBREAKFAST [facility] Last Admin: 09/17/19 07:06 Dose: 75 mcg Lorazepam (Ativan) 0 mg IVPUSH Q4H PRN; Protocol PRN Reason: Withdrawal Symptoms Thiamine HCl (Vitamin B-1) 100 mg PO DAILY [facility] Last Admin: 09/16/19 09:22 Dose: 100 mg Discontinued Medications Amlodipine Besylate (Norvasc) 10 mg PO DAILY [facility] Last Admin: 09/14/19 09:06 Dose: 10 mg Bacitracin (Bacitracin Oint 1 Gm) Confirm Administered Dose 1 dose .ROUTE .STK- MED ONE Stop: 09/13/19 19:35 Last Admin: 09/13/19 21:15 Dose: Not Given Bacitracin (Bacitracin Oint 1 Gm) 1 dose TOP ONETIME ONE Stop: 09/13/19 19:47 Last Admin: 09/13/19 20:52 Dose: 1 dose Hydromorphone HCl (Dilaudid) 2 mg IVPUSH ONETIME ONE Stop: 09/13/19 19:28 Last Admin: 09/13/19 19:40 Dose: 1 mg Levetiracetam 1,000 mg/ (Dextrose/Water) 110 mls @ 440 mls/hr IV ONETIME ONE Stop: 09/16/19 13:58 Last Admin: 09/16/19 14:43 Dose: 440 mls/hr Sodium Chloride (Normal Saline) 1,000 mls @ 999 mls/hr IV STAT ONE Stop: 09/16/19 16:15 Last Admin: 09/16/19 15:25 Dose: 999 mls/hr Levothyroxine Sodium (Levothyroxine) 150 mcg PO ACBREAKFAST [facility] Last Admin: 09/14/19 11:09 Dose: 150 mcg Lorazepam (Ativan) 0.5 mg IVPUSH ONETIME ONE Stop: 09/13/19 19:28 Last Admin: 09/13/19 21:15 Dose: Not Given Lorazepam (Ativan) 1 mg IVPUSH ONETIME ONE Stop: 09/16/19 13:42 Last Admin: 09/16/19 13:54 Dose: 1 mg Oxycodone HCl (Oxycodone) 5 mg PO Q4H PRN PRN Reason: Pain (moderate 4-6) Last Admin: 09/16/19 09:38 Dose: 5 mg Ergocalciferol ( Vitamin D2) 2,000 Unit 1 each PO DAILY [facility] Last Admin: 09/15/19 11:47 Dose: Not Given - Exam General: Alert, Oriented, Cooperative Lungs: Clear to Auscultation, Normal Respiratory Effort Cardiovascular: Regular Rate, Regular Rhythm GI/Abdominal Exam: Normal Bowel Sounds, Soft, Non-Tender, No Distention Extremities: No Pedal Edema, Normal Capillary Refill Skin: Warm, Dry, Intact Neurological: No New Focal Deficit Psy/Mental Status: Alert, Normal Affect, Normal Mood Sepsis Event Note - Evaluation Sepsis Screening Result: No Definite Risk - Focused Exam Vital Signs: Vital Signs Temp Pulse Resp BP Pulse Ox 09/17/19 05:07 98.5 F 68 15 136/75 95 09/16/19 23:39 98.2 F 75 16 137/69 97 Date Exam was Performed: 09/17/19 Time Exam was Performed: 08:19 - Problem List Review Problem List Initiated/Reviewed/Updated: Yes - My Orders Last 24 Hours: My Active Orders 09/16/19 13:26 LORazepam [Ativan] See Protocol IVPUSH Q4H PRN 09/16/19 13:27 Seizure Precautions [OM.PC] Routine 09/16/19 13:45 Sodium Chloride 0.9% [Normal Saline] 1,000 ml IV ASDIRECTED 09/16/19 13:46 Telemetry Monitoring [Cardiac Monitoring] [RC] Q8H 09/16/19 13:50 Ketorolac [Toradol] 30 mg IVPUSH Q6H PRN 09/16/19 21:00 levETIRAcetam [Keppra] 500 mg PO BID - Plan Plan:: 1. Left ankle Fracture- Ortho consulted- plans to cast once swelling has improved. Patient is strict non weight bearing and is working with PT. Nursing CMS checks every 4 hours. Stopped oxycodone due to seizure activity, Toradol for pain but patient hasn't been requesting any pain medications. 2. Seizure- received loading dose of Keppra yesterday and has since been on Keppra [address]ID. Seizure precautions in place. 3. HTN- stable, continue home med- amlodipine 4. Hypothyroidism- continue home med-levothyroxine <Rosalia Blackman - Last Filed: 09/17/19 10:42> - Patient Data Vitals - Most Recent: Last Vital Signs Temp 36.6 C 09/17/19 08:00 Pulse 64 09/17/19 08:00 Resp 18 09/17/19 08:00 BP 153/71 H 09/17/19 08:31 Pulse Ox 99 09/17/19 08:00 I&O - Last 24 Hours: Intake & Output 09/16/19 09/17/19 09/17/19 22:59 06:59 14:59 Intake Total 1610 1767 Output Total 300 500 Balance 1310 1267 Lab Results Last 24 Hours: Laboratory Results - last 24 hr 09/16/19 09/16/19 09/16/19 Range/Units 13:20 13:41 13:41 WBC (4.0-11.0) K/uL RBC (4.50-5.90) M/uL Hgb (13.0-17.0) g/dL Hct (38.0-50.0) % MCV (80.0-98.0) fL MCH (27.0-32.0) pg MCHC (31.0-37.0) g/dL RDW Std Deviation (28.0-62.0) fl RDW Coeff of Park (11.0-15.0) % Plt Count (150-400) K/uL MPV (7.40-12.00) fL Neut % (Auto) (48.0-80.0) % Lymph % (Auto) (16.0-40.0) % Foard % (Auto) (0.0-15.0) % Eos % (Auto) (0.0-7.0) % Baso % (Auto) (0.0-1.5) % Neut # (Auto) (1.4-5.7) K/uL Lymph # (Auto) (0.6-2.4) K/uL Foard # (Auto) (0.0-0.8) K/uL Eos # (Auto) (0.0-0.7) K/uL Baso # (Auto) (0.0-0.1) K/uL Nucleated RBC % /100WBC Nucleated RBCs # K/uL Lactate 2.3 H* (0.20-2.00) mmol/L Sodium (136-148) mmol/L Potassium (3.5-5.1) mmol/L Chloride (98-107) mmol/L Carbon Dioxide (21.0-32.0) mmol/L BUN (7.0-18.0) mg/dL Creatinine (0.8-1.3) mg/dL Est Cr Clr Drug Dosing mL/min Estimated GFR (MDRD) ml/min Glucose (74-106) mg/dL POC Glucose 160 H (60-110) mg/dL Calcium (8.5-10.1) mg/dL Magnesium (1.8-2.4) mg/dL Total Bilirubin 0.8 (0.2-1.0) mg/dL Direct Bilirubin 0.20 (0.0-0.5) mg/dL Indirect Bilirubin 0.60 AST 26 (15-37) IU/L ALT 30 (14-63) IU/L Alkaline Phosphatase 136 H (46-116) U/L Creatine Kinase (26-308) U/L Total Protein 6.9 (6.4-8.2) g/dL Albumin 3.4 (3.4-5.0) g/dL Globulin 3.5 (2.6-4.0) g/dL Albumin/Globulin Ratio 1.0 (0.9-1.6) Prolactin 18.7 ng/mL 09/16/19 09/16/19 09/17/19 Range/Units 13:41 17:15 06:00 WBC 4.12 (4.0-11.0) K/uL RBC 4.68 (4.50-5.90) M/uL Hgb 9.9 L (13.0-17.0) g/dL Hct 34.1 L (38.0-50.0) % MCV 72.9 L (80.0-98.0) fL MCH 21.2 L (27.0-32.0) pg MCHC 29.0 L (31.0-37.0) g/dL RDW Std Deviation 46.7 (28.0-62.0) fl RDW Coeff of Park 18 H (11.0-15.0) % Plt Count 144 L (150-400) K/uL MPV 9.80 (7.40-12.00) fL Neut % (Auto) 60.4 (48.0-80.0) % Lymph % (Auto) 25.0 (16.0-40.0) % Foard % (Auto) 9.0 (0.0-15.0) % Eos % (Auto) 4.4 (0.0-7.0) % Baso % (Auto) 1.2 (0.0-1.5) % Neut # (Auto) 2.5 (1.4-5.7) K/uL Lymph # (Auto) 1.0 (0.6-2.4) K/uL Foard # (Auto) 0.4 (0.0-0.8) K/uL Eos # (Auto) 0.2 (0.0-0.7) K/uL Baso # (Auto) 0.1 (0.0-0.1) K/uL Nucleated RBC % 0.0 /100WBC Nucleated RBCs # 0 K/uL Lactate 1.5 (0.20-2.00) mmol/L Sodium (136-148) mmol/L Potassium (3.5-5.1) mmol/L Chloride (98-107) mmol/L Carbon Dioxide (21.0-32.0) mmol/L BUN (7.0-18.0) mg/dL Creatinine (0.8-1.3) mg/dL Est Cr Clr Drug Dosing mL/min Estimated GFR (MDRD) ml/min Glucose (74-106) mg/dL POC Glucose (60-110) mg/dL Calcium (8.5-10.1) mg/dL Magnesium (1.8-2.4) mg/dL Total Bilirubin (0.2-1.0) mg/dL Direct Bilirubin (0.0-0.5) mg/dL Indirect Bilirubin AST (15-37) IU/L ALT (14-63) IU/L Alkaline Phosphatase (46-116) U/L Creatine Kinase 112 (26-308) U/L Total Protein (6.4-8.2) g/dL Albumin (3.4-5.0) g/dL Globulin (2.6-4.0) g/dL Albumin/Globulin Ratio (0.9-1.6) Prolactin ng/mL 09/17/19 09/17/19 Range/Units 06:00 06:00 WBC (4.0-11.0) K/uL RBC (4.50-5.90) M/uL Hgb (13.0-17.0) g/dL Hct (38.0-50.0) % MCV (80.0-98.0) fL MCH (27.0-32.0) pg MCHC (31.0-37.0) g/dL RDW Std Deviation (28.0-62.0) fl RDW Coeff of Park (11.0-15.0) % Plt Count (150-400) K/uL MPV (7.40-12.00) fL Neut % (Auto) (48.0-80.0) % Lymph % (Auto) (16.0-40.0) % Foard % (Auto) (0.0-15.0) % Eos % (Auto) (0.0-7.0) % Baso % (Auto) (0.0-1.5) % Neut # (Auto) (1.4-5.7) K/uL Lymph # (Auto) (0.6-2.4) K/uL Foard # (Auto) (0.0-0.8) K/uL Eos # (Auto) (0.0-0.7) K/uL Baso # (Auto) (0.0-0.1) K/uL Nucleated RBC % /100WBC Nucleated RBCs # K/uL Lactate (0.20-2.00) mmol/L Sodium 141 (136-148) mmol/L Potassium 3.7 (3.5-5.1) mmol/L Chloride 108 H (98-107) mmol/L Carbon Dioxide 26.0 (21.0-32.0) mmol/L BUN 16 (7.0-18.0) mg/dL Creatinine 1.0 (0.8-1.3) mg/dL Est Cr Clr Drug Dosing 57.71 mL/min Estimated GFR (MDRD) > 60.0 ml/min Glucose 101 (74-106) mg/dL POC Glucose (60-110) mg/dL Calcium 7.5 L (8.5-10.1) mg/dL Magnesium 1.8 (1.8-2.4) mg/dL Total Bilirubin (0.2-1.0) mg/dL Direct Bilirubin (0.0-0.5) mg/dL Indirect Bilirubin AST (15-37) IU/L ALT (14-63) IU/L Alkaline Phosphatase (46-116) U/L Creatine Kinase (26-308) U/L Total Protein (6.4-8.2) g/dL Albumin (3.4-5.0) g/dL Globulin (2.6-4.0) g/dL Albumin/Globulin Ratio (0.9-1.6) Prolactin ng/mL Med Orders - Current: Current Medications Amlodipine Besylate (Norvasc) 5 mg PO DAILY [facility] Last Admin: 09/17/19 08:31 Dose: 5 mg Bisacodyl (Dulcolax) 10 mg RECTAL DAILY PRN PRN Reason: Constipation Calcium Carbonate (Caltrate 600+D 1500 Mg-400 Units) 1 tab PO DAILY [facility] Last Admin: 09/17/19 08:31 Dose: 1 tab Docusate Sodium (Colace) 100 mg PO DAILY [facility] Last Admin: 09/17/19 08:31 Dose: 100 mg Folic Acid (Folic Acid) 1 mg PO DAILY [facility] Last Admin: 09/17/19 08:31 Dose: 1 mg Heparin Sodium (Porcine) (Heparin Sodium) 5,000 units SUBCUT Q12H [facility] Last Admin: 09/16/19 23:48 Dose: 5,000 units Sodium Chloride (Normal Saline) 1,000 mls @ 125 mls/hr IV ASDIRECTED [facility] Last Admin: 09/17/19 08:30 Dose: 125 mls/hr Ketorolac Tromethamine (Toradol) 30 mg IVPUSH Q6H PRN PRN Reason: Pain Stop: 09/21/19 13:50 Levetiracetam (Keppra) 500 mg PO BID [facility] Last Admin: 09/17/19 08:31 Dose: 500 mg Levothyroxine Sodium (Levothyroxine) 75 mcg PO ACBREAKFAST [facility] Last Admin: 09/17/19 07:06 Dose: 75 mcg Lorazepam (Ativan) 0 mg IVPUSH Q4H PRN; Protocol PRN Reason: Withdrawal Symptoms Thiamine HCl (Vitamin B-1) 100 mg PO DAILY [facility] Last Admin: 09/17/19 08:31 Dose: 100 mg Discontinued Medications Amlodipine Besylate (Norvasc) 10 mg PO DAILY [facility] Last Admin: 09/14/19 09:06 Dose: 10 mg Bacitracin (Bacitracin Oint 1 Gm) Confirm Administered Dose 1 dose .ROUTE .STK- MED ONE Stop: 09/13/19 19:35 Last Admin: 09/13/19 21:15 Dose: Not Given Bacitracin (Bacitracin Oint 1 Gm) 1 dose TOP ONETIME ONE Stop: 09/13/19 19:47 Last Admin: 09/13/19 20:52 Dose: 1 dose Hydromorphone HCl (Dilaudid) 2 mg IVPUSH ONETIME ONE Stop: 09/13/19 19:28 Last Admin: 09/13/19 19:40 Dose: 1 mg Levetiracetam 1,000 mg/ (Dextrose/Water) 110 mls @ 440 mls/hr IV ONETIME ONE Stop: 09/16/19 13:58 Last Admin: 09/16/19 14:43 Dose: 440 mls/hr Sodium Chloride (Normal Saline) 1,000 mls @ 999 mls/hr IV STAT ONE Stop: 09/16/19 16:15 Last Admin: 09/16/19 15:25 Dose: 999 mls/hr Levothyroxine Sodium (Levothyroxine) 150 mcg PO ACBREAKFAST [facility] Last Admin: 09/14/19 11:09 Dose: 150 mcg Lorazepam (Ativan) 0.5 mg IVPUSH ONETIME ONE Stop: 09/13/19 19:28 Last Admin: 09/13/19 21:15 Dose: Not Given Lorazepam (Ativan) 1 mg IVPUSH ONETIME ONE Stop: 09/16/19 13:42 Last Admin: 09/16/19 13:54 Dose: 1 mg Oxycodone HCl (Oxycodone) 5 mg PO Q4H PRN PRN Reason: Pain (moderate 4-6) Last Admin: 09/16/19 09:38 Dose: 5 mg Ergocalciferol ( Vitamin D2) 2,000 Unit 1 each PO DAILY [facility] Last Admin: 09/15/19 11:47 Dose: Not Given Sepsis Event Note - Focused Exam Vital Signs: Vital Signs Temp Pulse Resp BP BP Pulse Ox 09/17/19 08:31 153/71 H 09/17/19 08:00 36.6 C 64 18 153/71 H 99 09/17/19 05:07 36.9 C 68 15 136/75 95 09/16/19 23:39 36.8 C 75 16 137/69 97 Date Exam was Performed: 09/17/19 Time Exam was Performed: 10:42 - Plan Plan:: I have seen and evaluated the patient and agree with the residents note unless specified in my note
[2019-09-17] MEDS: Sodium Chloride 0.9% 1,000 ML IV SCH ×3 (08:30→23:53)
[2019-09-17] MEDS: Thiamine 100 MG Tab PO SCH (08:31)
[2019-09-17] MEDS: levETIRAcetam 500 MG Tab PO SCH ×2 (08:31→20:13)
[2019-09-17] MEDS: Docusate Sodium 100 MG Cap PO SCH (08:31)
[2019-09-17] MEDS: Calcium Carbonate/Vitamin D3 1500 MG-400 Units Tab PO SCH (08:31)
[2019-09-17] MEDS: amLODIPine 5 MG Tab PO SCH (08:31)
[2019-09-17] MEDS: Folic Acid 1 MG Tab PO SCH (08:31)
[2019-09-17] MEDS ORDERED: Docusate Sodium 100 MG Cap PO PRN (10:55)
[2019-09-17] MEDS: Heparin Sodium 5,000 Units/ML Vial SUBCUT SCH ×2 (11:57→23:22)
[2019-09-18 06:28] LABS: BLOOD UREA NITROGEN,BUN 11 mg/dL (7.0-18.0); CARBON DIOXIDE,CO2 25.8 mmol/L (21.0-32.0); CHLORIDE,CL 107 mmol/L (98-107); GLUCOSE RANDOM 98 mg/dL (74-106); POTASSIUM,K 3.6 mmol/L (3.5-5.1); SODIUM,NA 140 mmol/L (136-148)
[2019-09-18] MEDS: Levothyroxine 150 MCG Tab PO SCH (06:35)
[2019-09-18] MEDS: Sodium Chloride 0.9% 1,000 ML IV SCH (08:05)
[2019-09-18] MEDS: Calcium Carbonate/Vitamin D3 1500 MG-400 Units Tab PO SCH (08:07)
[2019-09-18] MEDS: levETIRAcetam 500 MG Tab PO SCH ×2 (08:07→20:42)
[2019-09-18] MEDS: Folic Acid 1 MG Tab PO SCH (08:07)
[2019-09-18] MEDS: amLODIPine 5 MG Tab PO SCH (08:07)
[2019-09-18] MEDS: Thiamine 100 MG Tab PO SCH (08:10)
[2019-09-18] MEDS ORDERED: Magnesium Sulfate/Water 2 GM in Premix Bag 1 BAG IV ONE (09:19)
[2019-09-18] MEDS ORDERED: Sodium Chloride 0.9% 1,000 ML IV SCH (09:30)
--- NOTE | 2019-09-18 12:01 | PCM.PN ---
- General Info Date of Service: 09/18/19 Admission Dx/Problem (Free Text): Admission Diagnosis/Problem Admission Diagnosis/Problem Ankle fracture Subjective Update: The patient reports he is doing well and has no complaints No seizure activity the overnight. Reports good appetite. - Review of Systems General: Denies: Fever, Weakness, Fatigue HEENT: Denies: Dysphasia, Post Nasal Drip, Sinus Congestion Pulmonary: Denies: Shortness of Breath, Pleuritic Chest Pain Cardiovascular: Denies: Chest Pain, Palpitations, Dyspnea on Exertion Gastrointestinal: Denies: Abdominal Pain, Constipation, Decreased Appetite Genitourinary: Denies: Dysuria, Frequency, Burning Musculoskeletal: Reports: Foot Pain, Joint Pain. Denies: Neck Pain, Shoulder Pain, Arm Pain Skin: Denies: Cyanosis, Jaundice, Mottled Neurological: Denies: Confusion, Dizziness, Headache Psychiatric: Denies: Confusion, Depression - Patient Data Vitals - Most Recent: Last Vital Signs Temp 36.5 C 09/18/19 08:00 Pulse 74 09/18/19 08:00 Resp 18 09/18/19 08:00 BP 170/80 H 09/18/19 08:07 Pulse Ox 97 09/18/19 08:00 Weight - Most Recent: 96 kg I&O - Last 24 Hours: Intake & Output 09/17/19 09/18/19 09/18/19 22:59 06:59 14:59 Intake Total 1884 1814 Output Total 680 0 Balance 1204 1814 Lab Results Last 24 Hours: Laboratory Results - last 24 hr 09/18/19 09/18/19 Range/Units 05:53 05:53 WBC 4.21 (4.0-11.0) K/uL RBC 4.59 (4.50-5.90) M/uL Hgb 9.7 L (13.0-17.0) g/dL Hct 33.1 L (38.0-50.0) % MCV 72.1 L (80.0-98.0) fL MCH 21.1 L (27.0-32.0) pg MCHC 29.3 L (31.0-37.0) g/dL RDW Std Deviation 45.8 (28.0-62.0) fl RDW Coeff of [place] 18 H (11.0-15.0) % Plt Count 149 L (150-400) K/uL MPV 9.90 (7.40-12.00) fL Neut % (Auto) 62.5 (48.0-80.0) % Lymph % (Auto) 24.5 (16.0-40.0) % [place] % (Auto) 8.3 (0.0-15.0) % Eos % (Auto) 4.0 (0.0-7.0) % Baso % (Auto) 0.7 (0.0-1.5) % Neut # (Auto) 2.6 (1.4-5.7) K/uL Lymph # (Auto) 1.0 (0.6-2.4) K/uL [place] # (Auto) 0.4 (0.0-0.8) K/uL Eos # (Auto) 0.2 (0.0-0.7) K/uL Baso # (Auto) 0.0 (0.0-0.1) K/uL Nucleated RBC % 0.0 /100WBC Nucleated RBCs # 0 K/uL Sodium 140 (136-148) mmol/L Potassium 3.6 (3.5-5.1) mmol/L Chloride 107 (98-107) mmol/L Carbon Dioxide 25.8 (21.0-32.0) mmol/L BUN 11 (7.0-18.0) mg/dL Creatinine 1.0 (0.8-1.3) mg/dL Est Cr Clr Drug Dosing 57.71 mL/min Estimated GFR (MDRD) > 60.0 ml/min Glucose 98 (74-106) mg/dL Calcium 7.6 L (8.5-10.1) mg/dL Med Orders - Current: Current Medications Amlodipine Besylate (Norvasc) 5 mg PO DAILY [facility] Last Admin: 09/18/19 08:07 Dose: 5 mg Bisacodyl (Dulcolax) 10 mg RECTAL DAILY PRN PRN Reason: Constipation Calcium Carbonate (Caltrate 600+D 1500 Mg-400 Units) 1 tab PO DAILY [facility] Last Admin: 09/18/19 08:07 Dose: 1 tab Docusate Sodium (Colace) 100 mg PO DAILY PRN PRN Reason: Constipation Folic Acid (Folic Acid) 1 mg PO DAILY [facility] Last Admin: 09/18/19 08:07 Dose: 1 mg Heparin Sodium (Porcine) (Heparin Sodium) 5,000 units SUBCUT Q12H [facility] Last Admin: 09/17/19 23:22 Dose: 5,000 units Sodium Chloride (Normal Saline) 1,000 mls @ 75 mls/hr IV ASDIRECTED [facility] Ketorolac Tromethamine (Toradol) 30 mg IVPUSH Q6H PRN PRN Reason: Pain Stop: 09/21/19 13:50 Levetiracetam (Keppra) 500 mg PO BID [facility] Last Admin: 09/18/19 08:07 Dose: 500 mg Levothyroxine Sodium (Levothyroxine) 75 mcg PO ACBREAKFAST [facility] Last Admin: 09/18/19 06:35 Dose: 75 mcg Lorazepam (Ativan) 0 mg IVPUSH Q4H PRN; Protocol PRN Reason: Withdrawal Symptoms Thiamine HCl (Vitamin B-1) 100 mg PO DAILY [facility] Last Admin: 09/18/19 08:10 Dose: 100 mg Discontinued Medications Amlodipine Besylate (Norvasc) 10 mg PO DAILY [facility] Last Admin: 09/14/19 09:06 Dose: 10 mg Bacitracin (Bacitracin Oint 1 Gm) Confirm Administered Dose 1 dose .ROUTE .STK- MED ONE Stop: 09/13/19 19:35 Last Admin: 09/13/19 21:15 Dose: Not Given Bacitracin (Bacitracin Oint 1 Gm) 1 dose TOP ONETIME ONE Stop: 09/13/19 19:47 Last Admin: 09/13/19 20:52 Dose: 1 dose Docusate Sodium (Colace) 100 mg PO DAILY [facility] Last Admin: 09/17/19 08:31 Dose: 100 mg Hydromorphone HCl (Dilaudid) 2 mg IVPUSH ONETIME ONE Stop: 09/13/19 19:28 Last Admin: 09/13/19 19:40 Dose: 1 mg Sodium Chloride (Normal Saline) 1,000 mls @ 75 mls/hr IV ASDIRECTED [facility] Last Admin: 09/18/19 08:05 Dose: 125 mls/hr Levetiracetam 1,000 mg/ (Dextrose/Water) 110 mls @ 440 mls/hr IV ONETIME ONE Stop: 09/16/19 13:58 Last Admin: 09/16/19 14:43 Dose: 440 mls/hr Sodium Chloride (Normal Saline) 1,000 mls @ 999 mls/hr IV STAT ONE Stop: 09/16/19 16:15 Last Admin: 09/16/19 15:25 Dose: 999 mls/hr Magnesium Sulfate 2 gm/ Premix 50 mls @ 50 mls/hr IV ONETIME ONE Stop: 09/18/19 10:18 Last Admin: 09/18/19 10:09 Dose: 50 mls/hr Levothyroxine Sodium (Levothyroxine) 150 mcg PO ACBREAKFAST [facility] Last Admin: 09/14/19 11:09 Dose: 150 mcg Lorazepam (Ativan) 0.5 mg IVPUSH ONETIME ONE Stop: 09/13/19 19:28 Last Admin: 09/13/19 21:15 Dose: Not Given Lorazepam (Ativan) 1 mg IVPUSH ONETIME ONE Stop: 09/16/19 13:42 Last Admin: 09/16/19 13:54 Dose: 1 mg Oxycodone HCl (Oxycodone) 5 mg PO Q4H PRN PRN Reason: Pain (moderate 4-6) Last Admin: 09/16/19 09:38 Dose: 5 mg Ergocalciferol ( Vitamin D2) 2,000 Unit 1 each PO DAILY [facility] Last Admin: 09/15/19 11:47 Dose: Not Given - Exam General: Alert, Oriented HEENT: Mucous Membr. Moist/[place] Neck: Supple, Trachea Midline Lungs: Clear to Auscultation, Normal Respiratory Effort Cardiovascular: Regular Rate, Regular Rhythm GI/Abdominal Exam: Normal Bowel Sounds, Soft, Non-Tender Extremities: Normal Inspection, Limited Range of Motion. No: Slow Capillary Refill, Joint Swelling, Increased Warmth, Mottled, Pallor, Redness Peripheral Pulses: 3+: Dorsalis Pedis (L), Dorsalis Pedis (R) Skin: Ecchymosis Wound/Incisions: Healing Well, Dressing Dry and Intact, No Drainage Sepsis Event Note - Evaluation Sepsis Screening Result: No Definite Risk - Focused Exam Vital Signs: Vital Signs Temp Pulse Resp BP BP Pulse Ox 09/18/19 08:07 170/80 H 09/18/19 08:00 36.5 C 74 18 170/80 H 97 09/18/19 04:00 37.1 C 76 16 142/70 H 96 Date Exam was Performed: 09/18/19 Time Exam was Performed: 12:04 - Problem List Review Problem List Initiated/Reviewed/Updated: Yes - My Orders Last 24 Hours: My Active Orders 09/18/19 09:30 Sodium Chloride 0.9% [Normal Saline] 1,000 ml IV ASDIRECTED - Plan Plan:: Plan:: 1. Left ankle Fracture- Ortho consulted- plans to cast possibly on Thursday. Patient is strict non weight bearing and is working with PT. Stopped oxycodone due to seizure activity, Toradol for pain, hold heparin dose at midnight, scd in place 2. Seizure- Possible component of alcohol withdrawal along with oxycodone which possibly decreased the seizure threshold. cont Keppra 500 BID. Seizure precautions in place. 3. HTN- stable, continue home med- amlodipine 4. Hypothyroidism- continue home med-levothyroxine
[2019-09-18] MEDS: Heparin Sodium 5,000 Units/ML Vial SUBCUT SCH (12:09)
[2019-09-19] MEDS: Heparin Sodium 5,000 Units/ML Vial SUBCUT SCH ×3 (00:35→23:54)
[2019-09-19] MEDS: Levothyroxine 150 MCG Tab PO SCH (06:51)
[2019-09-19 06:52] LABS: BLOOD UREA NITROGEN,BUN 12 mg/dL (7.0-18.0); CARBON DIOXIDE,CO2 24.3 mmol/L (21.0-32.0); CHLORIDE,CL 106 mmol/L (98-107); GLUCOSE RANDOM 102 mg/dL (74-106); POTASSIUM,K 3.5 mmol/L (3.5-5.1); SODIUM,NA 140 mmol/L (136-148)
--- NOTE | 2019-09-19 08:09 | PCM.PN ---
- General Info Date of Service: 09/19/19 Admission Dx/Problem (Free Text): Admission Diagnosis/Problem Admission Diagnosis/Problem Ankle fracture Subjective Update: Doing well this morning, No complaints of pain. No chest pain or SOB. No ankle pain. Denies any concerns this morning. Alert and oriented. Functional Status: Reports: Pain Controlled, Urinating - Review of Systems General: Reports: No Symptoms HEENT: Reports: No Symptoms Pulmonary: Reports: No Symptoms. Denies: Shortness of Breath Cardiovascular: Reports: No Symptoms. Denies: Chest Pain Gastrointestinal: Reports: No Symptoms. Denies: Abdominal Pain, Nausea, Vomiting Genitourinary: Reports: No Symptoms. Denies: Dysuria, Frequency, Burning Musculoskeletal: Denies: Leg Pain, Joint Pain Skin: Reports: No Symptoms Neurological: Reports: No Symptoms Psychiatric: Reports: No Symptoms - Patient Data Vitals - Most Recent: Last Vital Signs Temp 99.5 F 09/19/19 08:03 Pulse 69 09/19/19 08:03 Resp 15 09/19/19 08:03 BP 140/72 09/19/19 08:03 Pulse Ox 98 09/19/19 08:03 Weight - Most Recent: 96 kg I&O - Last 24 Hours: Intake & Output 09/18/19 09/19/19 09/19/19 22:59 06:59 14:59 Intake Total 360 1251 Output Total 200 500 Balance 160 751 Lab Results Last 24 Hours: Laboratory Results - last 24 hr 09/19/19 09/19/19 09/19/19 Range/Units 05:55 05:55 05:55 WBC 4.27 (4.0-11.0) K/uL RBC 4.82 (4.50-5.90) M/uL Hgb 10.2 L (13.0-17.0) g/dL Hct 34.6 L (38.0-50.0) % MCV 71.8 L (80.0-98.0) fL MCH 21.2 L (27.0-32.0) pg MCHC 29.5 L (31.0-37.0) g/dL RDW Std Deviation 45.9 (28.0-62.0) fl RDW Coeff of [place] 18 H (11.0-15.0) % Plt Count 156 (150-400) K/uL MPV 10.00 (7.40-12.00) fL Neut % (Auto) 62.6 (48.0-80.0) % Lymph % (Auto) 20.8 (16.0-40.0) % [place] % (Auto) 11.5 (0.0-15.0) % Eos % (Auto) 4.2 (0.0-7.0) % Baso % (Auto) 0.9 (0.0-1.5) % Neut # (Auto) 2.7 (1.4-5.7) K/uL Lymph # (Auto) 0.9 (0.6-2.4) K/uL [place] # (Auto) 0.5 (0.0-0.8) K/uL Eos # (Auto) 0.2 (0.0-0.7) K/uL Baso # (Auto) 0.0 (0.0-0.1) K/uL Nucleated RBC % 0.0 /100WBC Nucleated RBCs # 0 K/uL INR 1.03 Sodium 140 (136-148) mmol/L Potassium 3.5 (3.5-5.1) mmol/L Chloride 106 (98-107) mmol/L Carbon Dioxide 24.3 (21.0-32.0) mmol/L BUN 12 (7.0-18.0) mg/dL Creatinine 1.0 (0.8-1.3) mg/dL Est Cr Clr Drug Dosing 57.71 mL/min Estimated GFR (MDRD) > 60.0 ml/min Glucose 102 (74-106) mg/dL Calcium 8.1 L (8.5-10.1) mg/dL Phosphorus 2.2 L (2.6-4.7) mg/dL Magnesium 1.8 (1.8-2.4) mg/dL Med Orders - Current: Current Medications Amlodipine Besylate (Norvasc) 10 mg PO DAILY [facility] Bisacodyl (Dulcolax) 10 mg RECTAL DAILY PRN PRN Reason: Constipation Calcium Carbonate (Caltrate 600+D 1500 Mg-400 Units) 1 tab PO DAILY [facility] Last Admin: 09/18/19 08:07 Dose: 1 tab Docusate Sodium (Colace) 100 mg PO DAILY PRN PRN Reason: Constipation Folic Acid (Folic Acid) 1 mg PO DAILY [facility] Last Admin: 09/18/19 08:07 Dose: 1 mg Heparin Sodium (Porcine) (Heparin Sodium) 5,000 units SUBCUT Q12H [facility] Last Admin: 09/19/19 00:35 Dose: Not Given Sodium Chloride (Normal Saline) 1,000 mls @ 75 mls/hr IV ASDIRECTED [facility] Last Admin: 09/18/19 22:13 Dose: 75 mls/hr Ketorolac Tromethamine (Toradol) 30 mg IVPUSH Q6H PRN PRN Reason: Pain Stop: 09/21/19 13:50 Levetiracetam (Keppra) 500 mg PO BID [facility] Last Admin: 09/18/19 20:42 Dose: 500 mg Levothyroxine Sodium (Levothyroxine) 75 mcg PO ACBREAKFAST [facility] Last Admin: 09/19/19 06:51 Dose: Not Given Lorazepam (Ativan) 0 mg IVPUSH Q4H PRN; Protocol PRN Reason: Withdrawal Symptoms Thiamine HCl (Vitamin B-1) 100 mg PO DAILY [facility] Last Admin: 09/18/19 08:10 Dose: 100 mg Discontinued Medications Amlodipine Besylate (Norvasc) 10 mg PO DAILY [facility] Last Admin: 09/14/19 09:06 Dose: 10 mg Amlodipine Besylate (Norvasc) 5 mg PO DAILY [facility] Last Admin: 09/18/19 08:07 Dose: 5 mg Bacitracin (Bacitracin Oint 1 Gm) Confirm Administered Dose 1 dose .ROUTE .STK- MED ONE Stop: 09/13/19 19:35 Last Admin: 09/13/19 21:15 Dose: Not Given Bacitracin (Bacitracin Oint 1 Gm) 1 dose TOP ONETIME ONE Stop: 09/13/19 19:47 Last Admin: 09/13/19 20:52 Dose: 1 dose Docusate Sodium (Colace) 100 mg PO DAILY [facility] Last Admin: 09/17/19 08:31 Dose: 100 mg Hydromorphone HCl (Dilaudid) 2 mg IVPUSH ONETIME ONE Stop: 09/13/19 19:28 Last Admin: 09/13/19 19:40 Dose: 1 mg Sodium Chloride (Normal Saline) 1,000 mls @ 75 mls/hr IV ASDIRECTED [facility] Last Admin: 09/18/19 08:05 Dose: 125 mls/hr Levetiracetam 1,000 mg/ (Dextrose/Water) 110 mls @ 440 mls/hr IV ONETIME ONE Stop: 09/16/19 13:58 Last Admin: 09/16/19 14:43 Dose: 440 mls/hr Sodium Chloride (Normal Saline) 1,000 mls @ 999 mls/hr IV STAT ONE Stop: 09/16/19 16:15 Last Admin: 09/16/19 15:25 Dose: 999 mls/hr Magnesium Sulfate 2 gm/ Premix 50 mls @ 50 mls/hr IV ONETIME ONE Stop: 09/18/19 10:18 Last Admin: 09/18/19 10:09 Dose: 50 mls/hr Levothyroxine Sodium (Levothyroxine) 150 mcg PO ACBREAKFAST [facility] Last Admin: 09/14/19 11:09 Dose: 150 mcg Lorazepam (Ativan) 0.5 mg IVPUSH ONETIME ONE Stop: 09/13/19 19:28 Last Admin: 09/13/19 21:15 Dose: Not Given Lorazepam (Ativan) 1 mg IVPUSH ONETIME ONE Stop: 09/16/19 13:42 Last Admin: 09/16/19 13:54 Dose: 1 mg Oxycodone HCl (Oxycodone) 5 mg PO Q4H PRN PRN Reason: Pain (moderate 4-6) Last Admin: 09/16/19 09:38 Dose: 5 mg Ergocalciferol ( Vitamin D2) 2,000 Unit 1 each PO DAILY [facility] Last Admin: 09/15/19 11:47 Dose: Not Given - Exam General: Alert, Oriented, Cooperative, No Acute Distress HEENT: Pupils Equal, Pupils Reactive Lungs: Clear to Auscultation, Normal Respiratory Effort Cardiovascular: Regular Rate, Regular Rhythm Back Exam: Normal Inspection, Full Range of Motion Extremities: Normal Inspection, Normal Range of Motion, Non-Tender, No Pedal Edema, Normal Capillary Refill Wound/Incisions: Dressing Dry and Intact (splint to L lower extremity intact) Psy/Mental Status: Alert, Normal Affect, Normal Mood Sepsis Event Note - Evaluation Sepsis Screening Result: No Definite Risk - Focused Exam Vital Signs: Vital Signs Temp Pulse Resp BP Pulse Ox 09/19/19 08:03 99.5 F 69 15 140/72 98 09/19/19 03:58 98.9 F 73 18 139/70 96 09/18/19 23:40 99.4 F 74 16 142/69 H 96 Date Exam was Performed: 09/19/19 Time Exam was Performed: 09:06 - Problem List & Annotations (1) Ankle fracture, left SNOMED Code(s): 58032245 Code(s): S82.892A - OTH FRACTURE OF LEFT LOWER LEG, INIT FOR CLOS FX Status : Acute Priority: High Current Visit: Yes Qualifiers: Encounter type: initial encounter Fracture type: closed Qualified Code(s) : S82.892A - Other fracture of left lower leg, initial encounter for closed fracture (2) Hypothyroidism SNOMED Code(s): 59605270 Code(s): E03.9 - HYPOTHYROIDISM, UNSPECIFIED Status: Chronic Current Visit: Yes (3) HTN (hypertension) SNOMED Code(s): 25247134 Code(s): I10 - ESSENTIAL (PRIMARY) HYPERTENSION Status: Chronic Current Visit: Yes (4) Seizure SNOMED Code(s): 30542836 Code(s): R56.9 - UNSPECIFIED CONVULSIONS Status: Acute Current Visit: Yes - Problem List Review Problem List Initiated/Reviewed/Updated: Yes - Plan Plan:: 89 yo male with left ankle fracture admitted for pain control and debility. 1. L ankle fracture: - PT consulted - Strict NWB to leg extremity for 8 weeks post casting. - Up to chair for all meals. - Dr Blair consulted, plans on casting in OR this morning. - Tylenol and Toradol for pain PRN pain - keep leg elevated. - [facility] checks every 4 hours per nursing 2. Seizure: - Unsure if this is related to Oxycodone or alcohol withdrawal. But has has displayed no other alchol withdrawal symptoms during stay. CIWAA negative. - Continue Keppra, no further seizure activity. - Seizure precautions in place 3. HTN: - Stable, continue Amlodipine 4. Hypothyroidism - Stable, continue Levothyroxine. VTE Prophylaxis: Heparin subcut, on hold this morning for OR Dispo: 2-3 days pending improvement in ability to ambulate. Ar Manager assisting with SNF placement for rehabilitation.
--- NOTE | 2019-09-19 09:03 | PCM.PREANE ---
Preanesthetic Assessment - Anesthesia/Transfusion/Family Hx Anesthesia History: Prior Anesthesia Without Reaction Family History of Anesthesia Reaction: No Transfusion History: No Prior Transfusion(s) Intubation History: Unknown - Physical Assessment NPO Status Date: 09/19/19 NPO Status Time: 00:05 Vital Signs: Last Vital Signs Temp 37.5 C 09/19/19 08:03 Pulse 69 09/19/19 08:03 Resp 15 09/19/19 08:03 BP 140/72 09/19/19 08:03 Pulse Ox 98 09/19/19 08:03 Height: 1.85 m Weight: 96 kg ASA Class: 2 - Lab Values: Laboratory Last Values WBC 4.27 K/uL (4.0-11.0) 09/19/19 05:55 RBC 4.82 M/uL (4.50-5.90) 09/19/19 05:55 Hgb 10.2 g/dL (13.0-17.0) L 09/19/19 05:55 Hct 34.6 % (38.0-50.0) L 09/19/19 05:55 MCV 71.8 fL (80.0-98.0) L 09/19/19 05:55 MCH 21.2 pg (27.0-32.0) L 09/19/19 05:55 MCHC 29.5 g/dL (31.0-37.0) L 09/19/19 05:55 RDW Std Deviation 45.9 fl (28.0-62.0) 09/19/19 05:55 RDW Coeff of [place] 18 % (11.0-15.0) H 09/19/19 05:55 Plt Count 156 K/uL (150-400) 09/19/19 05:55 MPV 10.00 fL (7.40-12.00) 09/19/19 05:55 Neut % (Auto) 62.6 % (48.0-80.0) 09/19/19 05:55 Lymph % (Auto) 20.8 % (16.0-40.0) 09/19/19 05:55 [place] % (Auto) 11.5 % (0.0-15.0) 09/19/19 05:55 Eos % (Auto) 4.2 % (0.0-7.0) 09/19/19 05:55 Baso % (Auto) 0.9 % (0.0-1.5) 09/19/19 05:55 Neut # (Auto) 2.7 K/uL (1.4-5.7) 09/19/19 05:55 Lymph # (Auto) 0.9 K/uL (0.6-2.4) 09/19/19 05:55 [place] # (Auto) 0.5 K/uL (0.0-0.8) 09/19/19 05:55 Eos # (Auto) 0.2 K/uL (0.0-0.7) 09/19/19 05:55 Baso # (Auto) 0.0 K/uL (0.0-0.1) 09/19/19 05:55 Nucleated RBC % 0.0 /100WBC 09/19/19 05:55 Nucleated RBCs # 0 K/uL 09/19/19 05:55 INR 1.03 09/19/19 05:55 Lactate 1.5 mmol/L (0.20-2.00) 09/16/19 17:15 Sodium 140 mmol/L (136-148) 09/19/19 05:55 Potassium 3.5 mmol/L (3.5-5.1) 09/19/19 05:55 Chloride 106 mmol/L (98-107) 09/19/19 05:55 Carbon Dioxide 24.3 mmol/L (21.0-32.0) 09/19/19 05:55 BUN 12 mg/dL (7.0-18.0) 09/19/19 05:55 Creatinine 1.0 mg/dL (0.8-1.3) 09/19/19 05:55 Est Cr Clr Drug Dosing 57.71 mL/min 09/19/19 05:55 Estimated GFR (MDRD) > 60.0 ml/min 09/19/19 05:55 Glucose 102 mg/dL (74-106) 09/19/19 05:55 POC Glucose 160 mg/dL (60-110) H 09/16/19 13:20 Calcium 8.1 mg/dL (8.5-10.1) L 09/19/19 05:55 Phosphorus 2.2 mg/dL (2.6-4.7) L 09/19/19 05:55 Magnesium 1.8 mg/dL (1.8-2.4) 09/19/19 05:55 Total Bilirubin 0.8 mg/dL (0.2-1.0) 09/16/19 13:41 Direct Bilirubin 0.20 mg/dL (0.0-0.5) 09/16/19 13:41 Indirect Bilirubin 0.60 09/16/19 13:41 AST 26 IU/L (15-37) 09/16/19 13:41 ALT 30 IU/L (14-63) 09/16/19 13:41 Alkaline Phosphatase 136 U/L (46-116) H 09/16/19 13:41 Creatine Kinase 112 U/L (26-308) 09/16/19 13:41 Total Protein 6.9 g/dL (6.4-8.2) 09/16/19 13:41 Albumin 3.4 g/dL (3.4-5.0) 09/16/19 13:41 Globulin 3.5 g/dL (2.6-4.0) 09/16/19 13:41 Albumin/Globulin Ratio 1.0 (0.9-1.6) 09/16/19 13:41 TSH 3rd Generation 3.72 uIU/mL (0.36-3.74) 09/14/19 00:25 Prolactin 18.7 ng/mL 09/16/19 13:41 - Allergies Allergies/Adverse Reactions: Allergies Allergy/AdvReac Type Severity Reaction Status Date / Time oxycodone Allergy Seizure Verified 09/16/19 13:50 - Acknowledgements Anesthesia Type Planned: Spinal Pt an Appropriate Candidate for the Planned Anesthesia: Yes Alternatives and Risks of Anesthesia Discussed w Pt/Guardian: Yes Pt/Guardian Understands and Agrees with Anesthesia Plan: Yes PreAnesthesia Questionnaire HEENT History: Reports: Other (See Below) Other HEENT History: wears glasses Cardiovascular History: Reports: Hypertension Respiratory History: Reports: None Gastrointestinal History: Reports: None Genitourinary History: Reports: None Musculoskeletal History: Reports: None Neurological History: Reports: None Psychiatric History: Reports: None Endocrine/Metabolic History: Reports: Hyperthyroidism Hematologic History: Reports: Blood Transfusion(s) Immunologic History: Reports: None Oncologic (Cancer) History: Reports: None Dermatologic History: Reports: None - Past Surgical History Head Surgeries/Procedures: Reports: None HEENT Surgical History: Reports: None Cardiovascular Surgical History: Reports: None Respiratory Surgical History: Reports: None GI Surgical History: Reports: None Male Surgical History: Reports: None Endocrine Surgical History: Reports: None Neurological Surgical History: Reports: None Musculoskeletal Surgical History: Reports: None Oncologic Surgical History: Reports: None Dermatological Surgical History: Reports: None - SUBSTANCE USE Smoking Status *Q: Former Smoker Second Hand Smoke Exposure: No Days Per Week of Alcohol Use: 4 Number of Drinks Per Day: 2 Total Drinks Per Week: 8 Date of Last Drink: 09/13/19 Time of Last Drink: 18:00 Recreational Drug Use History: No - HOME MEDS Home Medications: Home Meds Ergocalciferol (Vitamin D2) [Vitamin D2] 2,000 unit PO DAILY 03/04/19 [History] Levothyroxine 75 mcg PO DAILY 03/04/19 [History] amLODIPine Besylate [Amlodipine Besylate] 5 mg PO DAILY 03/04/19 [History] - CURRENT (IN HOUSE) MEDS Current Meds: Current Medications Amlodipine Besylate (Norvasc) 10 mg PO DAILY [facility] Bisacodyl (Dulcolax) 10 mg RECTAL DAILY PRN PRN Reason: Constipation Calcium Carbonate (Caltrate 600+D 1500 Mg-400 Units) 1 tab PO DAILY [facility] Last Admin: 09/18/19 08:07 Dose: 1 tab Docusate Sodium (Colace) 100 mg PO DAILY PRN PRN Reason: Constipation Folic Acid (Folic Acid) 1 mg PO DAILY [facility] Last Admin: 09/18/19 08:07 Dose: 1 mg Heparin Sodium (Porcine) (Heparin Sodium) 5,000 units SUBCUT Q12H [facility] Last Admin: 09/19/19 00:35 Dose: Not Given Sodium Chloride (Normal Saline) 1,000 mls @ 75 mls/hr IV ASDIRECTED [facility] Last Admin: 09/18/19 22:13 Dose: 75 mls/hr Ketorolac Tromethamine (Toradol) 30 mg IVPUSH Q6H PRN PRN Reason: Pain Stop: 09/21/19 13:50 Levetiracetam (Keppra) 500 mg PO BID [facility] Last Admin: 09/18/19 20:42 Dose: 500 mg Levothyroxine Sodium (Levothyroxine) 75 mcg PO ACBREAKFAST [facility] Lorazepam (Ativan) 0 mg IVPUSH Q4H PRN; Protocol PRN Reason: Withdrawal Symptoms Thiamine HCl (Vitamin B-1) 100 mg PO DAILY [facility] Last Admin: 09/18/19 08:10 Dose: 100 mg Discontinued Medications Amlodipine Besylate (Norvasc) 10 mg PO DAILY [facility] Last Admin: 09/14/19 09:06 Dose: 10 mg Amlodipine Besylate (Norvasc) 5 mg PO DAILY [facility] Last Admin: 09/18/19 08:07 Dose: 5 mg Bacitracin (Bacitracin Oint 1 Gm) Confirm Administered Dose 1 dose .ROUTE .STK- MED ONE Stop: 09/13/19 19:35 Last Admin: 09/13/19 21:15 Dose: Not Given Bacitracin (Bacitracin Oint 1 Gm) 1 dose TOP ONETIME ONE Stop: 09/13/19 19:47 Last Admin: 09/13/19 20:52 Dose: 1 dose Docusate Sodium (Colace) 100 mg PO DAILY [facility] Last Admin: 09/17/19 08:31 Dose: 100 mg Hydromorphone HCl (Dilaudid) 2 mg IVPUSH ONETIME ONE Stop: 09/13/19 19:28 Last Admin: 09/13/19 19:40 Dose: 1 mg Sodium Chloride (Normal Saline) 1,000 mls @ 75 mls/hr IV ASDIRECTED [facility] Last Admin: 09/18/19 08:05 Dose: 125 mls/hr Levetiracetam 1,000 mg/ (Dextrose/Water) 110 mls @ 440 mls/hr IV ONETIME ONE Stop: 09/16/19 13:58 Last Admin: 09/16/19 14:43 Dose: 440 mls/hr Sodium Chloride (Normal Saline) 1,000 mls @ 999 mls/hr IV STAT ONE Stop: 09/16/19 16:15 Last Admin: 09/16/19 15:25 Dose: 999 mls/hr Magnesium Sulfate 2 gm/ Premix 50 mls @ 50 mls/hr IV ONETIME ONE Stop: 09/18/19 10:18 Last Admin: 09/18/19 10:09 Dose: 50 mls/hr Levothyroxine Sodium (Levothyroxine) 150 mcg PO ACBREAKFAST [facility] Last Admin: 09/14/19 11:09 Dose: 150 mcg Levothyroxine Sodium (Levothyroxine) 75 mcg PO ACBREAKFAST [facility] Last Admin: 09/19/19 06:51 Dose: Not Given Lorazepam (Ativan) 0.5 mg IVPUSH ONETIME ONE Stop: 09/13/19 19:28 Last Admin: 09/13/19 21:15 Dose: Not Given Lorazepam (Ativan) 1 mg IVPUSH ONETIME ONE Stop: 09/16/19 13:42 Last Admin: 09/16/19 13:54 Dose: 1 mg Oxycodone HCl (Oxycodone) 5 mg PO Q4H PRN PRN Reason: Pain (moderate 4-6) Last Admin: 09/16/19 09:38 Dose: 5 mg Ergocalciferol ( Vitamin D2) 2,000 Unit 1 each PO DAILY [facility] Last Admin: 09/15/19 11:47 Dose: Not Given
--- NOTE | 2019-09-19 11:02 | PCM.OPNOTE ---
- General Post-Op/Procedure Note Date of Surgery/Procedure: 09/19/19 Operative Procedure(s): Clesd reduction and casting of left bimalleolar ankle fracture Findings: Unstable left bimalleolar ankle fracture dislocation with possible necrosis of medial ankle skin Pre Op Diagnosis: Left unstable bimalleolar ankle fracture dislocation Post-Op Diagnosis: Left unstable bimalleolar ankle fracture dislocation Anesthesia Technique: Combo Spinal/Epidural, General Mask Primary Surgeon: Martin Blair Photographic Supervisor: Fawn Purdy Photographic Supervisor: Stephen Johnson Role of Photographic Supervisor: Fracture dislocation maintenance of reduction EBL in mLs: 0 Complications: None Condition: Good Free Text/Narrative:: Intake & Output 09/18/19 09/19/19 09/19/19 22:59 06:59 14:59 Intake Total 360 1251 Output Total 200 500 Balance 160 751 After a discussion of risks and benefits of surgery, the patient consented to surgery. Patient was taken to the operating room. After adequate spinal anesthesia, he was placed back in a supine position. C-arm views were taken which noted that the ankle had subluxed laterally again in the splint. This is likely due to the fact that the patient was weightbearing on his left lower extremity while transferring from the bed to a chair or commode. The splint was removed. The skin over the medial malleolus was deeply mild or appropriate consistent with possible necrosis, although the skin was intact. There appeared to be a ruptured skin blister with the superficial layer of the dermis peeled away. A closed reduction was performed with maximal inversion and C-arm confirmed anatomic reduction of the mortise. A stockinette was then placed from the thigh past the foot and the patient was placed in Malik traction. Webril was applied with extra padding over the heel. Four-inch fiberglass casting was then applied for a short leg fiberglass cast in maximal ankle inversion. The cast was contoured to help maintain the reduction to minimize pressure on the toes and to minimize pressure over the tibial crest. The leg was taken out of traction and C-arm showed that the mortise remained reduced. Stockinette was then pulled back over the proximal and distal ends of the cast and a superficial layer of fiberglass was applied. A cast window was made with an oscillating saw over the medial malleolus for future skin checks. Patient was accompanied to the recovery room in stable condition. Restrictions: Patient is non weightbearing his left lower extremity for 8 weeks. Antibiotics: Not indicated for closed reduction procedure Pain management and venous thromboembolism prophylaxis per the Hospital service
[2019-09-19] MEDS: Phosphorus #1 250 MG Tab PO SCH ×3 (13:49→23:55)
[2019-09-19] MEDS: Calcium Carbonate/Vitamin D3 1500 MG-400 Units Tab PO SCH (13:50)
[2019-09-19] MEDS: amLODIPine 5 MG Tab PO SCH (13:50)
[2019-09-19] MEDS: Thiamine 100 MG Tab PO SCH (13:51)
[2019-09-19] MEDS: Folic Acid 1 MG Tab PO SCH (13:52)
[2019-09-19] MEDS: levETIRAcetam 500 MG Tab PO SCH ×2 (14:04→22:30)
[2019-09-20 06:10] LABS: BLOOD UREA NITROGEN,BUN 13 mg/dL (7.0-18.0); CARBON DIOXIDE,CO2 23.9 mmol/L (21.0-32.0); CHLORIDE,CL 105 mmol/L (98-107); GLUCOSE RANDOM 100 mg/dL (74-106); POTASSIUM,K 3.4 mmol/L (3.5-5.1); SODIUM,NA 141 mmol/L (136-148)
[2019-09-20] MEDS: Phosphorus #1 250 MG Tab PO SCH (06:39)
--- NOTE | 2019-09-20 07:26 | PCM48HPAN ---
Post Anesthesia Note - EVALUATION WITHIN 48HRS OF ANESTHETIC Vital Signs in Normal Range: Yes Patient Participated in Evaluation: Yes Respiratory Function Stable: Yes Airway Patent: Yes Cardiovascular Function Stable: Yes Hydration Status Stable: Yes Pain Control Satisfactory: Yes Nausea and Vomiting Control Satisfactory: Yes Mental Status Recovered: Yes Vital Signs: Last Vital Signs Temp 37.2 C 09/20/19 04:22 Pulse 69 09/20/19 04:22 Resp 18 09/20/19 04:22 BP 149/69 H 09/20/19 04:22 Pulse Ox 94 L 09/20/19 04:22 - COMMENTS/OBSERVATIONS Free Text/Narrative:: Doing as well as expected.
[2019-09-20] MEDS ORDERED: Levothyroxine 75 MCG Tab PO SCH (07:30)
[2019-09-20] MEDS ORDERED: Potassium Chloride 20 MEQ Tab.ER PO ONE (08:13)
[2019-09-20] MEDS: Calcium Carbonate/Vitamin D3 1500 MG-400 Units Tab PO SCH (08:57)
[2019-09-20] MEDS: Folic Acid 1 MG Tab PO SCH (08:57)
[2019-09-20] MEDS: amLODIPine 5 MG Tab PO SCH (08:57)
[2019-09-20] MEDS: Thiamine 100 MG Tab PO SCH (08:57)
[2019-09-20] MEDS: levETIRAcetam 500 MG Tab PO SCH (08:58)
--- NOTE | 2019-09-20 11:34 | PCM.DCSUM1 ---
Discharge Summary - Hospital Course Brief History: 89 yo male with pmh of hypertension and hypothyrodism who presented to the ED with ankle fracture. Patient reported falling after tripping on the sidewalk outside the [employer] on his way home. He reports drinking about four beers at the [employer] daily with friends. The x-ray report dislocation with fracture. He had closed reduction x2 in the ED. Dr. Blair was consulted and recommended admission. Diagnosis: Stroke: No - Discharge Data Discharge Date: 09/20/19 Discharge Disposition: DC/Tfer to SNF 03 Condition: Good - Referral to Home Health Primary Care Physician: [facility] - Discharge Diagnosis/Problem(s) (1) Ankle fracture, left SNOMED Code(s): 21771191 ICD Code: S82.892A - OTH FRACTURE OF LEFT LOWER LEG, INIT FOR CLOS FX Status: Acute Priority: High Current Visit: Yes Qualifiers: Encounter type: initial encounter Fracture type: closed Qualified Code(s) : S82.892A - Other fracture of left lower leg, initial encounter for closed fracture (2) Hypothyroidism SNOMED Code(s): 87158134 ICD Code: E03.9 - HYPOTHYROIDISM, UNSPECIFIED Status: Chronic Current Visit: Yes (3) HTN (hypertension) SNOMED Code(s): 09859192 ICD Code: I10 - ESSENTIAL (PRIMARY) HYPERTENSION Status: Chronic Current Visit: Yes (4) Seizure SNOMED Code(s): 44759191 ICD Code: R56.9 - UNSPECIFIED CONVULSIONS Status: Acute Current Visit: Yes - Patient Summary/Data Operative Procedure(s) Performed: Closed reduction and casting of left bimalleolar ankle fracture Consults: Consultations 09/19/19 14:22 Consult to Physical Therapy [PT Evaluation and Treatment] [CONS] Routine Hospital Course: Admitting Diagnoses: L lateral malleolus ankle fracture with lateral ankle dislocation Fall Discharge Diagnoses: L lateral malleolus ankle fracture with lateral ankle dislocation- closed reduction and casting Seizure Other pmh HTN Julio was admitted secondary to fall and L ankle fracture. He was placed in splint over the weekend and on Thursday morning as swelling had improved, casting was completed in the OR per Dr Blair. NWB status to L lower extremity x 8 weeks per Orthopedics. he will have follow up next week with Dr Blair. Cast window placed on lateral malleous due to skin breakdown. This will need to be monitored. During his stay, no alcohol withdrawal was noted. Oxycodone given for pain on Thursday, patient was then noted to have seizure like activity. He was started on Keppra. No further seizures, Oxycodone was discontinued. Pain was tolerable with Tylenol. He will have follow up with Dr Cote, Neurology as outpatient. I spoke with Dr Parra regarding admission to [facility] for short term rehabilitation due to NWB status and the inability for Julio to ambulate and safely care for himself at home. He is to return to ED or clinic if concerns should arise. - Patient Instructions Diet: Regular Diet as Tolerated Activity: Non Weight Bearing (left lower extremity) Driving: Do Not Drive Showering/Bathing: May Shower (cover cast to protect from getting wet), No Tub Bathing/Swimming Notify Provider of: Fever, Increased Pain, Swelling and Redness, Drainage, Nausea and/or Vomiting Other/Special Instructions: Monitor Skin integrity through cast window. PT/OT/ ST to evaluate and treat - Discharge Plan *PRESCRIPTION DRUG MONITORING PROGRAM REVIEWED*: Not Applicable *COPY OF PRESCRIPTION DRUG MONITORING REPORT IN PATIENT EVELIN: Not Applicable Prescriptions/Med Rec: Acetaminophen [Tylenol] 650 mg PO Q6H PRN #30 tab PRN Reason: Pain levETIRAcetam [Keppra] 500 mg PO BID #60 tablet Home Medications: Home Meds Levothyroxine 75 mcg PO DAILY 03/04/19 [History] amLODIPine Besylate [Amlodipine Besylate] 5 mg PO DAILY 03/04/19 [History] Acetaminophen [Tylenol] 650 mg PO Q6H PRN #30 tab 09/20/19 [Rx] Calcium Carbonate/Vitamin D3 [Caltrate 600+D 1500 MG-400 Units] 1 tab PO DAILY tablet 09/20/19 [Rx] Docusate Sodium [Colace] 100 mg PO DAILY PRN cap 09/20/19 [Rx] Folic Acid 1 mg PO DAILY tablet 09/20/19 [Rx] Thiamine [Vitamin B-1] 100 mg PO DAILY tablet 09/20/19 [Rx] bisacodyL [Dulcolax] 10 mg RECTAL DAILY PRN supp 09/20/19 [Rx] levETIRAcetam [Keppra] 500 mg PO BID #60 tablet 09/20/19 [Rx] Oxygen Therapy Mode: Room Air Patient Handouts: Closed Reduction for Ankle Fracture or Dislocation, Closed Reduction for Ankle Fracture or Dislocation, Care After Referrals: Martin Blair MD [Physician] - 09/27/19 9:30 am Mali Cote MD [Physician] - 09/23/19 9:00 am (Will be seen by TRISH Martini) Riaz Parra MD [Physician] - 09/22/19 (Will be seen on next [facility] rounds ) - Discharge Summary/Plan Comment DC Time >30 min.: Yes (Arranging dicharge with carlos as well as speaking with Dr Parra) - Patient Data Vitals - Most Recent: Last Vital Signs Temp 99.2 F 09/20/19 07:40 Pulse 75 09/20/19 07:40 Resp 17 09/20/19 07:40 BP 149/72 H 09/20/19 08:57 Pulse Ox 97 09/20/19 07:40 Weight - Most Recent: 96 kg I&O - Last 24 hours: Intake & Output 09/19/19 09/20/19 09/20/19 22:59 06:59 14:59 Intake Total 360 450 Output Total 900 463 Balance -540 -13 Lab Results - Last 24 hrs: Laboratory Results - last 24 hr 09/20/19 09/20/19 Range/Units 05:13 05:13 WBC 4.25 (4.0-11.0) K/uL RBC 4.69 (4.50-5.90) M/uL Hgb 9.9 L (13.0-17.0) g/dL Hct 33.7 L (38.0-50.0) % MCV 71.9 L (80.0-98.0) fL MCH 21.1 L (27.0-32.0) pg MCHC 29.4 L (31.0-37.0) g/dL RDW Std Deviation 46.5 (28.0-62.0) fl RDW Coeff of Park 18 H (11.0-15.0) % Plt Count 157 (150-400) K/uL MPV 9.90 (7.40-12.00) fL Neut % (Auto) 58.0 (48.0-80.0) % Lymph % (Auto) 27.5 (16.0-40.0) % Tift % (Auto) 9.6 (0.0-15.0) % Eos % (Auto) 4.0 (0.0-7.0) % Baso % (Auto) 0.9 (0.0-1.5) % Neut # (Auto) 2.5 (1.4-5.7) K/uL Lymph # (Auto) 1.2 (0.6-2.4) K/uL Tift # (Auto) 0.4 (0.0-0.8) K/uL Eos # (Auto) 0.2 (0.0-0.7) K/uL Baso # (Auto) 0.0 (0.0-0.1) K/uL Nucleated RBC % 0.0 /100WBC Nucleated RBCs # 0 K/uL Sodium 141 (136-148) mmol/L Potassium 3.4 L (3.5-5.1) mmol/L Chloride 105 (98-107) mmol/L Carbon Dioxide 23.9 (21.0-32.0) mmol/L BUN 13 (7.0-18.0) mg/dL Creatinine 1.0 (0.8-1.3) mg/dL Est Cr Clr Drug Dosing 57.71 mL/min Estimated GFR (MDRD) > 60.0 ml/min Glucose 100 (74-106) mg/dL Calcium 8.3 L (8.5-10.1) mg/dL Med Orders - Current: Current Medications Amlodipine Besylate (Norvasc) 10 mg PO DAILY [facility] Last Admin: 09/20/19 08:57 Dose: 10 mg Bisacodyl (Dulcolax) 10 mg RECTAL DAILY PRN PRN Reason: Constipation Last Admin: 09/19/19 13:56 Dose: 10 mg Calcium Carbonate (Caltrate 600+D 1500 Mg-400 Units) 1 tab PO DAILY [facility] Last Admin: 09/20/19 08:57 Dose: 1 tab Docusate Sodium (Colace) 100 mg PO DAILY PRN PRN Reason: Constipation Last Admin: 09/19/19 13:52 Dose: 100 mg Folic Acid (Folic Acid) 1 mg PO DAILY [facility] Last Admin: 09/20/19 08:57 Dose: 1 mg Heparin Sodium (Porcine) (Heparin Sodium) 5,000 units SUBCUT Q12H [facility] Last Admin: 09/19/19 23:54 Dose: 5,000 units Ketorolac Tromethamine (Toradol) 30 mg IVPUSH Q6H PRN PRN Reason: Pain Stop: 09/21/19 13:50 Levetiracetam (Keppra) 500 mg PO BID [facility] Last Admin: 09/20/19 08:58 Dose: 500 mg Levothyroxine Sodium (Levothyroxine) 75 mcg PO ACBREAKFAST [facility] Last Admin: 09/20/19 06:39 Dose: 75 mcg Lorazepam (Ativan) 0 mg IVPUSH Q4H PRN; Protocol PRN Reason: Withdrawal Symptoms Thiamine HCl (Vitamin B-1) 100 mg PO DAILY [facility] Last Admin: 09/20/19 08:57 Dose: 100 mg Discontinued Medications Amlodipine Besylate (Norvasc) 10 mg PO DAILY [facility] Last Admin: 09/14/19 09:06 Dose: 10 mg Amlodipine Besylate (Norvasc) 5 mg PO DAILY [facility] Last Admin: 09/18/19 08:07 Dose: 5 mg Bacitracin (Bacitracin Oint 1 Gm) Confirm Administered Dose 1 dose .ROUTE .STK- MED ONE Stop: 09/13/19 19:35 Last Admin: 09/13/19 21:15 Dose: Not Given Bacitracin (Bacitracin Oint 1 Gm) 1 dose TOP ONETIME ONE Stop: 09/13/19 19:47 Last Admin: 09/13/19 20:52 Dose: 1 dose Docusate Sodium (Colace) 100 mg PO DAILY [facility] Last Admin: 09/17/19 08:31 Dose: 100 mg Hydromorphone HCl (Dilaudid) 2 mg IVPUSH ONETIME ONE Stop: 09/13/19 19:28 Last Admin: 09/13/19 19:40 Dose: 1 mg Sodium Chloride (Normal Saline) 1,000 mls @ 75 mls/hr IV ASDIRECTED [facility] Last Admin: 09/18/19 08:05 Dose: 125 mls/hr Levetiracetam 1,000 mg/ (Dextrose/Water) 110 mls @ 440 mls/hr IV ONETIME ONE Stop: 09/16/19 13:58 Last Admin: 09/16/19 14:43 Dose: 440 mls/hr Sodium Chloride (Normal Saline) 1,000 mls @ 999 mls/hr IV STAT ONE Stop: 09/16/19 16:15 Last Admin: 09/16/19 15:25 Dose: 999 mls/hr Magnesium Sulfate 2 gm/ Premix 50 mls @ 50 mls/hr IV ONETIME ONE Stop: 09/18/19 10:18 Last Admin: 09/18/19 10:09 Dose: 50 mls/hr Sodium Chloride (Normal Saline) 1,000 mls @ 75 mls/hr IV ASDIRECTED [facility] Last Admin: 09/18/19 22:13 Dose: 75 mls/hr Levothyroxine Sodium (Levothyroxine) 150 mcg PO ACBREAKFAST [facility] Last Admin: 09/14/19 11:09 Dose: 150 mcg Levothyroxine Sodium (Levothyroxine) 75 mcg PO ACBREAKFAST [facility] Last Admin: 09/19/19 06:51 Dose: Not Given Lorazepam (Ativan) 0.5 mg IVPUSH ONETIME ONE Stop: 09/13/19 19:28 Last Admin: 09/13/19 21:15 Dose: Not Given Lorazepam (Ativan) 1 mg IVPUSH ONETIME ONE Stop: 09/16/19 13:42 Last Admin: 09/16/19 13:54 Dose: 1 mg Oxycodone HCl (Oxycodone) 5 mg PO Q4H PRN PRN Reason: Pain (moderate 4-6) Last Admin: 09/16/19 09:38 Dose: 5 mg Ergocalciferol ( Vitamin D2) 2,000 Unit 1 each PO DAILY [facility] Last Admin: 09/15/19 11:47 Dose: Not Given Potassium Chloride (Klor-Con M20) 20 meq PO ONETIME ONE Stop: 09/20/19 08:14 Last Admin: 09/20/19 08:58 Dose: 20 meq Sodium Phosphate (Neutra-Phos) 250 mg PO QID [facility] Last Admin: 09/20/19 06:39 Dose: 250 mg - Exam General: Reports: Alert, Oriented, Cooperative, No Acute Distress Lungs: Reports: Clear to Auscultation, Normal Respiratory Effort Cardiovascular: Reports: Regular Rate, Regular Rhythm GI/Abdominal Exam: Normal Bowel Sounds, Soft, Non-Tender Extremities: Normal Inspection, Normal Range of Motion, Non-Tender, No Pedal Edema, Normal Capillary Refill Wound/Incisions: Reports: Healing Well, Dressing Dry and Intact (bilateral elbows, abrasions from fall. Cast to L lower leg. ) Psy/Mental Status: Reports: Alert, Normal Affect, Normal Mood
[2019-09-20] MEDS: Heparin Sodium 5,000 Units/ML Vial SUBCUT SCH (12:02)
[2019-09-20 12:16] VITALS: BP 143/63; PULSE 81
== END 2019-09-20 01:35 | DRG 563 ==
LOC: MW.ED 18:28 → MW.MS 21:05
PROVIDERS: ADMIT Internal Medicine; ATTEND Internal Medicine
PROC: 0QSKXZZ Reposition Left Fibula, External Approach (ICD-10-PCS; principal; 2019-09-19)
PROC: 0QSHXZZ Reposition Left Tibia, External Approach (ICD-10-PCS; 2019-09-19)
DX: S82.832A Other fracture of upper and lower end of left fibula, initial encounter for closed fracture (principal); W19.XXXA Unspecified fall, initial encounter; S82.842A Displaced bimalleolar fracture of left lower leg, initial encounter for closed fracture; E03.9 Hypothyroidism, unspecified; R56.9 Unspecified convulsions; W01.0XXA Fall on same level from slipping, tripping and stumbling without subsequent striking against object, initial encounter; Z20.828 Contact with and (suspected) exposure to other viral communicable diseases; I10 Essential (primary) hypertension; Z79.890 Hormone replacement therapy; Z79.899 Other long term (current) drug therapy; E05.90 Thyrotoxicosis, unspecified without thyrotoxic crisis or storm; Z87.891 Personal history of nicotine dependence
CPT/HCPCS: 73600; 73610 ×3; J1170; 36415; 70450; 70450-26; 80048; 80053; 80076; 82550; 82962; 83605; 83735; 84100; 84146; 84443; 85025; 85610; 97110-GP; 97161-GP; 99284; A9270-GY; J1644; J1953; J2060; J3475; J7030; J7060; U0002

== ENCOUNTER → 2019-09-19 | Day surgery (SDC) | payer MEDICARE, OTHER ==
[~2019-09-19] MED LIST changes: -Lactated Ringers 1,000 ML IV SCH; +Midazolam 1 MG/ML 2 ML SDV ONE; -ceFAZolin 2 GM in Premix Bag 1 BAG IV ONE
[2019-09-19 11:02] VITALS: BP 126/66; PULSE 71
== END ==
LOC: MW.SDS 09:41
PROVIDERS: ATTEND Orthopaedic Surgery
DX: S82.842A Displaced bimalleolar fracture of left lower leg, initial encounter for closed fracture (principal); R56.9 Unspecified convulsions; E03.9 Hypothyroidism, unspecified; I10 Essential (primary) hypertension; E05.90 Thyrotoxicosis, unspecified without thyrotoxic crisis or storm; Z79.890 Hormone replacement therapy; Z87.891 Personal history of nicotine dependence; Z88.6 Allergy status to analgesic agent; Z79.899 Other long term (current) drug therapy; W01.0XXA Fall on same level from slipping, tripping and stumbling without subsequent striking against object, initial encounter; Y92.480 Sidewalk as the place of occurrence of the external cause
CPT/HCPCS: 27810; J2250; 76000; 76000-26

== ENCOUNTER 2019-10-26 06:28 | Observation (INO) | payer MEDICARE, OTHER ==
[2019-10-26] MEDS: Lactated Ringers 1,000 ML IV SCH ×2 (07:00→23:14)
[2019-10-26] MEDS ORDERED: Midazolam 1 MG/ML 2 ML SDV ONE (07:12)
[2019-10-26] MEDS ORDERED: Ondansetron 4 MG/2 ML SDV ONE (07:12)
[2019-10-26] MEDS ORDERED: fentaNYL 100 MCG/2 ML SDV ONE (07:12)
[2019-10-26] MEDS ORDERED: Propofol 200 MG/20 ML SDV ONE (07:12)
--- NOTE | 2019-10-26 07:12 | PCM.PREANE ---
Preanesthetic Assessment - Anesthesia/Transfusion/Family Hx Anesthesia History: Prior Anesthesia Without Reaction Family History of Anesthesia Reaction: No Transfusion History: No Prior Transfusion(s) Intubation History: Unknown - Review of Systems General: No Symptoms Pulmonary: No Symptoms Cardiovascular: No Symptoms Gastrointestinal: No Symptoms Neurological: No Symptoms Other: Reports: None - Physical Assessment NPO Status Date: 10/25/19 Height: 6 ft 1 in Weight: 102.058 kg ASA Class: 3 Mental Status: Alert & Oriented x3 Airway Class: Mallampati = 2 Dentition: Reports: Normal Dentition ROM/Head Extension: Full Lungs: Clear to Auscultation, Normal Respiratory Effort Cardiovascular: Regular Rate, Regular Rhythm - Allergies Allergies/Adverse Reactions: Allergies Allergy/AdvReac Type Severity Reaction Status Date / Time oxycodone Allergy Seizure Verified 10/24/19 11:39 - Blood Blood Available: No - Anesthesia Plan Pre-Op Medication Ordered: None - Acknowledgements Anesthesia Type Planned: General Anesthesia Pt an Appropriate Candidate for the Planned Anesthesia: Yes Alternatives and Risks of Anesthesia Discussed w Pt/Guardian: Yes Pt/Guardian Understands and Agrees with Anesthesia Plan: Yes Additional Comments: APL: htn, PVOD-s/p AAA repair, on Keppra for "seiure like activity" PLAN: GA/LMA PreAnesthesia Questionnaire HEENT History: Reports: Other (See Below) Other HEENT History: wears glasses Cardiovascular History: Reports: Hypertension Respiratory History: Reports: None Gastrointestinal History: Reports: None Genitourinary History: Reports: None Musculoskeletal History: Reports: None Other Musculoskeletal History: presently has fx left ankle Neurological History: Reports: None Other Neuro History: seizure like activity Psychiatric History: Reports: None Endocrine/Metabolic History: Reports: Hyperthyroidism Hematologic History: Reports: Blood Transfusion(s) Immunologic History: Reports: None Oncologic (Cancer) History: Reports: None Dermatologic History: Reports: None - Past Surgical History GI Surgical History: Reports: None - SUBSTANCE USE Smoking Status *Q: Former Smoker Tobacco Use Within Last Twelve Months: Pipe Recreational Drug Use History: No - HOME MEDS Home Medications: Home Meds Levothyroxine 75 mcg PO DAILY 03/04/19 [History] amLODIPine Besylate [Amlodipine Besylate] 5 mg PO DAILY 03/04/19 [History] Acetaminophen [Tylenol] 650 mg PO Q6H PRN #30 tab 09/20/19 [Rx] Calcium Carbonate/Vitamin D3 [Caltrate 600+D 1500 MG-400 Units] 1 tab PO DAILY tablet 09/20/19 [Rx] Docusate Sodium [Colace] 100 mg PO DAILY PRN cap 09/20/19 [Rx] Folic Acid 1 mg PO DAILY tablet 09/20/19 [Rx] Thiamine [Vitamin B-1] 100 mg PO DAILY tablet 09/20/19 [Rx] bisacodyL [Dulcolax] 10 mg RECTAL DAILY PRN supp 09/20/19 [Rx] levETIRAcetam [Keppra] 500 mg PO BID #60 tablet 09/20/19 [Rx] Bisacodyl [Laxative Suppository] 1 supp RECTAL ASDIRECTED PRN 10/25/19 [History] Carbamide Peroxide [Debrox] 3 drop EARBOTH ASDIRECTED PRN 10/25/19 [History] - CURRENT (IN HOUSE) MEDS Current Meds: Current Medications Lactated Ringer's (Ringers, Lactated) 1,000 mls @ 100 mls/hr IV ASDIRECTED [facility] Cefazolin Sodium/Dextrose 2 gm (/ Premix) 50 mls @ 100 mls/hr IV ONCALL [facility]
[2019-10-26] MEDS ORDERED: Dexamethasone 4 MG/ML 5 ML MDV ONE (07:13)
[2019-10-26] MEDS ORDERED: Ketorolac 30 MG/ML SDV ONE (07:13)
[2019-10-26] MEDS ORDERED: Bupivacaine 0.25% 10 ML SDV ONE ×2 (07:24→14:59)
[2019-10-26] MEDS ORDERED: ceFAZolin 1 GM Vial ONE (07:24)
[2019-10-26] MEDS ORDERED: ceFAZolin 2 GM in Premix Bag 1 BAG IV SCH (08:00)
[2019-10-26] MEDS ORDERED: HYDROmorphone 2 MG/ML Syringe ONE (09:24)
[2019-10-26] MEDS ORDERED: Sodium Chloride 0.9% 2.5 ML Syringe FLUSH PRN (10:59)
[2019-10-26] MEDS ORDERED: Sodium Chloride 0.9% 10 ML Syringe FLUSH PRN (10:59)
--- NOTE | 2019-10-26 13:05 | PCM.POSTAN ---
POST ANESTHESIA ASSESSMENT - MENTAL STATUS Mental Status: Alert, Oriented - VITAL SIGNS Vital Signs: Last Vital Signs Temp 97.2 F 10/26/19 10:56 Pulse 74 10/26/19 11:40 Resp 14 10/26/19 11:40 BP 135/65 10/26/19 11:40 Pulse Ox 99 10/26/19 11:40 - RESPIRATORY Respiratory Status: Respiratory Rate WNL, Airway Patent, O2 Saturation Stable - CARDIOVASCULAR CV Status: Pulse Rate WNL, Blood Pressure Stable - GASTROINTESTINAL GI Status: No Symptoms - POST OP HYDRATION Hydration Status: Adequate & Stable
--- NOTE | 2019-10-26 14:10 | PCM.OPNOTE ---
- General Post-Op/Procedure Note Date of Surgery/Procedure: 10/26/19 Operative Procedure(s): (1) open reduction and internal fixation of left lateral malleolus ankle fracture. (2) repair of left ankle syndesmosis disruption with syndesmotic screws Findings: The ankle syndesmosis was disrupted in addition to the lateral ankle fracture. There was scar tissue in the medial ankle mortise as well as the syndesmosis blocking reduction until this was excised. Pre Op Diagnosis: (1) left lateral malleolus ankle fracture. (2) left ankle syndesmosis disruption Post-Op Diagnosis: (1) left lateral malleolus ankle fracture. (2) left ankle syndesmosis disruption Anesthesia Technique: General LMA Primary Surgeon: Martin Blair Traffic Maintenance Officer: Fawn Purdy Traffic Maintenance Officer Was Necessary: Retraction and fracture reduction. EBL in mLs: 10 Complications: None Condition: Good Free Text/Narrative:: Intake & Output 10/25/19 10/26/19 10/26/19 22:59 06:59 14:59 Intake Total 1450 Balance 1450 Patient failed closed reduction casting of left ankle fracture dislocation. Failure was likely due to the syndesmosis injury. Because of the medial skin concerns, this was initially treated closed, but due to the failure and now decreased swelling and stable skin situation, I recommended proceeding with open reduction and internal fixation. Patient and his family agreed and consented to surgery. Patient was taken to the operating room. After adequate general anesthesia he remained in a supine position. Tourniquet was placed on the left proximal thigh. Left lower extremity is prepped and draped in usual sterile manner. A longitudinal incision was made over the fibula. Skin was incised with a scalpel. Subcutaneous tissue incised electrocautery. The fracture site was identified and callus was removed with elevators, curettes, and rongeurs. The fracture was reduced and a 6-hole one third tubular anti-glide plate was applied. The syndesmosis would not reduce or a small medial incision was made anterior to the medial mortise, skin incised and subcutaneous tissue spread and dissected down to the medial mortise, and tissue in the medial mortise blocking reduction was removed with the rongeur until there is a clear medial space. The syndesmosis was exposed anteriorly and scar tissue was removed with curettes and a rongeur. Multiple syndesmotic screws were then placed through the plate and then one screw inferior to the plate to reduce the syndesmosis. C-arm noted adequate reduction of the mortise with only minimal widening at the medial mortise and the syndesmosis repaired. Wounds were irrigated. Laterally, fascia was closed with interrupted #1 Vicryl sutures over the plate. Both medial and lateral incisions were closed with full-thickness skin sutures using 2-0 nylon interrupted horizontal mattress sutures. A sterile dressing was applied and the patient was then placed in a short leg fiberglass cast with the ankle in a inverted position. C-arm views in the cast confirmed adequate reduction. Patient was taken to the recovery room in stable condition. Pain medications: Acetaminophen and Tramadol Venous thrombi embolism prophylaxis: Aspirin for 90 days Prophylactic antibiotics: Ancef while in the hospital and discharged on Keflex for 2 weeks for open medial skin wound Restrictions: Nonweightbearing for 6 weeks in the fiberglass cast. Leg should be elevated to minimize swelling. Patient is being admitted to observation status because of the length of the procedure and the fact that he needed to be placed in the cast and needs to be observed to make sure the cast is not too tight. If he has no other medical issues and does well overnight, [facility].
[2019-10-26] MEDS ORDERED: traMADol 50 MG Tab PO PRN (15:00)
--- NOTE | 2019-10-26 15:24 | CR ---
Left ankle: 7 fluoroscopic spot views were obtained utilizing C-arm device of the left ankle. Comparison: Previous left ankle study of 10/18/19. Study shows reduction and fixation of previous distal fibular fracture with plate and screws. Ankle mortise appears symmetric. No additional abnormality is seen. Fluoroscopy time given as 27.5 seconds. Impression: 1. Procedural study as noted above. Diagnostic code #2 This report was dictated in MDT
[2019-10-26] MEDS: ceFAZolin 2 GM in Premix Bag 1 BAG IV SCH ×2 (15:28→22:24)
[2019-10-26] MEDS: Aspirin 325 MG Tab PO SCH (17:45)
[2019-10-26] MEDS: levETIRAcetam 500 MG Tab PO SCH (20:30)
[2019-10-27] MEDS: Acetaminophen 325 MG Tab PO PRN ×2 (00:26→21:27)
[2019-10-27] MEDS: Levothyroxine 75 MCG Tab PO SCH (06:32)
--- NOTE | 2019-10-27 07:21 | PCM48HPAN ---
Post Anesthesia Note - EVALUATION WITHIN 48HRS OF ANESTHETIC Vital Signs in Normal Range: Yes Patient Participated in Evaluation: Yes Respiratory Function Stable: Yes Airway Patent: Yes Cardiovascular Function Stable: Yes Hydration Status Stable: Yes Pain Control Satisfactory: Yes Nausea and Vomiting Control Satisfactory: Yes Mental Status Recovered: Yes Vital Signs: Last Vital Signs Temp 37.2 C 10/27/19 04:00 Pulse 69 10/27/19 04:00 Resp 18 10/27/19 04:00 BP 127/69 10/27/19 04:00 Pulse Ox 95 10/27/19 04:00 - COMMENTS/OBSERVATIONS Free Text/Narrative:: Doing well. No problems noted post, SaO2 96+.
--- NOTE | 2019-10-27 07:52 | PCM.SN.2 ---
- Free Text/Narrative Note: Ortho Note Significant post-op bleeding post-operatively Compression dressing applied by LINNEA Batista, yesterday Decreased bleeding but still some blood on pad Minimal ankle/foot pain Elevated on pillows Discontinue nursing dressing or pad changes so I can better visualize bleeding Unable to DC to SNF today due to bleeding Will continue to monitor bleeding
[2019-10-27] MEDS ORDERED: Aspirin 325 MG Tab PO SCH (09:00)
[2019-10-27] MEDS: Lactated Ringers 1,000 ML IV SCH ×2 (09:07→19:23)
[2019-10-27] MEDS: ceFAZolin 2 GM in Premix Bag 1 BAG IV SCH ×2 (09:09→17:17)
[2019-10-27] MEDS: levETIRAcetam 500 MG Tab PO SCH ×3 (09:22→20:16)
[2019-10-27] MEDS: amLODIPine 5 MG Tab PO SCH (09:22)
[2019-10-27] MEDS: Aspirin 325 MG Tab PO SCH (09:22)
[2019-10-28] MEDS: ceFAZolin 2 GM in Premix Bag 1 BAG IV SCH ×2 (01:24→09:35)
[2019-10-28] MEDS: Lactated Ringers 1,000 ML IV SCH (05:58)
[2019-10-28] MEDS: Levothyroxine 75 MCG Tab PO SCH (06:31)
--- NOTE | 2019-10-28 08:21 | PCM.SN.2 ---
- Free Text/Narrative Note: Ortho Note POD#2 ORIF left ankle fracture/dislocation No new blood on pad since yesterday so bleeding resolved Ok to DC to [facility] today No dressing changes at [facility] Keflex for 2 weeks due to medial skin wound existing prior to surgery Follow-up in 1 and 2 weeks for first dressing change and wound check Signed DC orders
[2019-10-28] MEDS: amLODIPine 5 MG Tab PO SCH (09:33)
[2019-10-28] MEDS: Aspirin 325 MG Tab PO SCH (09:33)
[2019-10-28] MEDS: levETIRAcetam 500 MG Tab PO SCH (09:34)
[2019-10-28 09:35] VITALS: BP 146/69
[2019-10-28 10:18] VITALS: PULSE 70
== END 2019-10-28 11:15 ==
LOC: MW.SDS 06:28 → MW.MS 11:00
PROVIDERS: ADMIT Orthopaedic Surgery; ATTEND Orthopaedic Surgery
DX: S82.62XA Displaced fracture of lateral malleolus of left fibula, initial encounter for closed fracture (principal); S93.432A Sprain of tibiofibular ligament of left ankle, initial encounter; I10 Essential (primary) hypertension; E03.9 Hypothyroidism, unspecified; E78.00 Pure hypercholesterolemia, unspecified; E05.90 Thyrotoxicosis, unspecified without thyrotoxic crisis or storm; Z11.59 Encounter for screening for other viral diseases; Z87.891 Personal history of nicotine dependence; Z79.890 Hormone replacement therapy; Z88.6 Allergy status to analgesic agent; Z79.899 Other long term (current) drug therapy; W19.XXXA Unspecified fall, initial encounter
CPT/HCPCS: 27792; 27829; 96365; 96376; 97110; 97162; 97530; A9270; C1713; G0378; J0131; J0690; J1100; J1170; J1885; J2250; J2405; J2704; J3010; J3490; J7120; U0002; 01480